=== PATIENT | female | born 1970 | race Caucasian/White ===

== ENCOUNTER 2016-07-15 17:22 | Emergency (ER) | payer OTHER ==
[~2016-07-15] VITALS: Ht 170.2 cm; Wt 121.0 kg
[~2016-07-15 17:22] MED LIST: CARD180C5 PO; LAMO200T PO; XANA1TAB PO; ZYPR10TA PO
[2016-07-15 17:26] VITALS: BP 148/102; PULSE 102; RESP 18; TEMP 99.2; O2SAT 97
[2016-07-15] MEDS ORDERED: OLAN5TAB PO (17:39)
[2016-07-15] MEDS ORDERED: XANA1TAB PO (17:39)
[2016-07-15] MEDS ORDERED: LAMI200T PO (17:39)
[2016-07-15] MEDS ORDERED: SODIUM CHLOR 0.9% 1000 ML INJ 1,000 ML IV SCH (17:52)
[2016-07-15] MEDS ORDERED: MORPHINE SULFATE 4 MG/ML INJ IV PUSH ONE (18:00)
[2016-07-15] MEDS ORDERED: SODIUM CHLORIDE 0.9% FLUSH 5 ML FLUSH IVF PRN (18:00)
[2016-07-15] MEDS ORDERED: ONDANSETRON HCL 4 MG/2 ML VIAL IVP ONE (18:00)
--- NOTE | 2016-07-15 18:15 | PD ---
HPI Chief Complaint: Abdominal Pain Time Seen by Provider: 17:44 Travel History International Travel<30 days: No Contact w/Intl Traveler<30days: No Traveled to known affect area: No History of Present Illness HPI Patient is a 46-year-old female who presents to emergency room with complaints of right lower quadrant abdominal pain. Patient reports that she has had constant pain to her right lower quadrant for the past week. Patient reports that pain feels like a cramping sensation to her right lower quadrant/pelvic area. Reports that pain has been persistent but worse today. Reports no fevers or chills. Denies constipation or diarrhea. Patient does admit to having a normal bowel movement this morning. Patient denies any vaginal bleeding or discharge. Patient reports that she has had history of a cholecystectomy, appendectomy as well as a partial hysterectomy secondary to fibroids. Reports that she does have a history of ovarian cysts, reports that her symptoms feel similar to when she has had ovarian cysts in the past. Denies dysuria/urgency/freq. No other complaints. PFSH Past Medical History Hx Anticoagulant Therapy: No Arthritis: Yes Blood Disorders: No Bipolar Disorder: Yes Anxiety: Yes Depression: Yes Heart Rhythm Problems: No Cancer: No Cardiac Catheterization: Yes (2008 IN [place]) Cardiovascular Problems: Yes (ARRYTHMIA) High Cholesterol: Yes Chemotherapy: No Chest Pain: Yes Congestive Heart Failure: No Cerebrovascular Accident: Yes (TIA 2013) Diabetes: No Diminished Hearing: No Endocrine: No Gastrointestinal Disorders: Yes (peptic ulcer disease , colon biopsy ) GERD: Yes Genitourinary: Yes Headaches: Yes Herniated Disk: Yes (L4, L5) Hypertension: Yes Immune Disorder: No Implanted Vascular Access Dvce: Yes Musculoskeletal: Yes (DEGENERATIVE DISC DISEASE, HERNIATED DISC L3,4 AND 5) Neurologic: Yes (TIA w/ TPA 2013) Psychiatric: Yes (bipolar ) Reproductive: No Respiratory: No Immunizations Current: Yes Migraines: Yes Radiation Therapy: No Seizures: No Thyroid Disease: No Ulcer: Yes PNEUMOCCOCAL Vaccine (Year): 2 ?: Not LMP: 2006 Menopausal: Yes : 2 Para: 2 Tubal Ligation: Yes Past Surgical History Appendectomy: Yes Body Medical Devices: post on tooth Cardiac Surgery: Yes (cardiac cath ) Cholecystectomy: Yes Coronary Artery Bypass Graft: No Gynecologic Surgery: Yes (partial hysterectomy, tubal ligation ) Hysterectomy: Yes (PARTIAL) Oral Surgery: Yes (tonsillectomy, oral surg w/ metal post implanted upper ) Tonsillectomy: Yes Other Surgery: Yes (INTESTINAL ADHESIONS) Family History Family Myocardial Infarction: Yes (FATHER) Social History Alcohol Use: Yes (SOCIALLY) Tobacco Use: No Substance Use: No Allergies-Medications (Allergen,Severity, Reaction): Coded Allergies: Pneumococcal Vaccine (Verified Allergy, Severe, ANAPHYLAXIS, 07/15/16) Aspirin (Verified Adverse Reaction, Intermediate, GI UPSET, 07/15/16) "IT GAVE ME A BLEEDING ULCER" Reported Meds & Prescriptions Reported Meds & Active Scripts Active Reported Olanzapine 5 Mg Tab 10 Mg PO HS Xanax Xr 24 HR (Alprazolam) 1 Mg Tab 1 Mg PO HS Take tablet intact, preferably in the morning. Lamictal (Lamotrigine) 200 Mg Tab 400 Mg PO HS Review of Systems Gastrointestinal: Positive: Abdominal Pain, No: Nausea, Vomiting, Diarrhea, Constipation Genitourinary: Positive: Pelvic Pain, No: Urgency, Frequency, Dysuria, Hematuria, Flank Pain, Discharge, Vaginal Bleeding Physical Exam Narrative GENERAL: No acute distress, nontoxic SKIN: Warm and dry. HEAD: Atraumatic. Normocephalic. EYES: Pupils equal and round. No injection or drainage. ENT: No nasal bleeding or discharge. Mucous membranes pink and moist. NECK: Trachea midline. No JVD. CARDIOVASCULAR: Regular rate and rhythm. No murmur appreciated. RESPIRATORY: No accessory muscle use. Clear to auscultation. Breath sounds equal bilaterally. GASTROINTESTINAL: Abdomen soft, patient with tenderness to right lower quadrant with no rebound or guarding : exam performed with RN at bedside, no discharge or bleeding, no cmt or adnexal tenderness MUSCULOSKELETAL: No obvious deformities. No clubbing. No cyanosis. No edema. NEUROLOGICAL: Awake and alert. Motor grossly within normal limits. Normal speech. PSYCHIATRIC: Appropriate mood and affect; insight and judgment normal. Data Data Last Documented VS Vital Signs Date Time Temp Pulse Resp B/P Pulse Ox O2 Delivery O2 Flow Rate FiO2 07/15/16 18:35 18 07/15/16 18:21 98 165/93 97 Room Air 07/15/16 17:26 99.2 Orders Complete Blood Count With Diff (07/15/16 17:52) Comprehensive Metabolic Panel (07/15/16 17:52) Prothrombin Time / Inr (Pt) (07/15/16 17:52) Act Partial Throm Time (Ptt) (07/15/16 17:52) Urinalysis - C+S If Indicated (07/15/16 17:52) Ct Abd/Pel W Iv Contrast(Rout) (07/15/16 17:52) Iv Access Insert/Monitor (07/15/16 17:52) Us Pelvis Comp Debate Director/Non-Preg (07/15/16 ) Morphine Inj (Morphine Inj) (07/15/16 18:00) Ondansetron Inj (Zofran Inj) (07/15/16 18:00) Sodium Chlor 0.9% 1000 Ml Inj (Ns 1000 M (07/15/16 17:52) Sodium Chloride 0.9% Flush (Ns Flush) (07/15/16 18:00) Ed Urine Pregnancytest Poc (07/15/16 17:52) Gc And Chlamydia Pcr (07/15/16 18:03) Wet Prep Profile (07/15/16 18:03) Labs Laboratory Tests Test 07/15/16 07/15/16 18:00 18:15 Urine Collection Type CLEAN CATCH Urine Color YELLOW Urine Turbidity CLEAR Urine pH 5.5 Urine Specific [place] 1.017 Urine Protein NEG mg/dL Urine Glucose (UA) NEG mg/dL Urine Ketones NEG mg/dL Urine Occult Blood NEG Urine Nitrite NEG Urine Bilirubin NEG Urine Leukocyte Esterase NEG Urine Squamous Epithelial 0-5 /hpf Cells Microscopic Urinalysis Comment CULT NOT INDICATED Clue Cells (Wet Prep) NONE SEEN Vaginal Trichomonas (Wet Prep) NONE SEEN Vaginal Yeast (Wet Prep) NONE SEEN White Blood Count 9.5 TH/MM3 Red Blood Count 4.82 MIL/MM3 Hemoglobin 13.8 GM/DL Hematocrit 40.3 % Mean Corpuscular Volume 83.5 FL Mean Corpuscular Hemoglobin 28.6 PG Mean Corpuscular Hemoglobin 34.2 % Concent Red Cell Distribution Width 12.7 % Platelet Count 237 TH/MM3 Mean Platelet Volume 8.7 FL Neutrophils (%) (Auto) 50.1 % Lymphocytes (%) (Auto) 42.4 % Monocytes (%) (Auto) 5.6 % Eosinophils (%) (Auto) 1.0 % Basophils (%) (Auto) 0.9 % Neutrophils # (Auto) 4.8 TH/MM3 Lymphocytes # (Auto) 4.0 TH/MM3 Monocytes # (Auto) 0.5 TH/MM3 Eosinophils # (Auto) 0.1 TH/MM3 Basophils # (Auto) 0.1 TH/MM3 CBC Comment DIFF FINAL Differential Comment Sodium Level 141 MEQ/L Potassium Level 3.6 MEQ/L Chloride Level 106 MEQ/L MDM Medical Decision Making Medical Screen Exam Complete: Yes Emergency Medical Condition: Yes Interpretation(s) Vital Signs Date Time Temp Pulse Resp B/P Pulse Ox O2 Delivery O2 Flow Rate FiO2 07/15/16 17:26 99.2 102 18 97 Differential Diagnosis cervicitis, ovarian cyst, ovarian torsion, cystis, muscle strain Narrative Course Patient is a 46-year-old female who presents to emergency room with complaints of RLQ abdominal pain for the past week. Patient with no fever/chills, no nausea or vomiting. Pt with hx of appendectomy as well as partial hysterectomy in the past. Patient with history of ovarian cysts in the past. Pelvic exam performed to evaluate for possible cervicitis. With no discharge or bleeding on evaluation. Patient with no CMT or adnexal tenderness. Patient with history of ovarian cysts in the past, ultrasound ordered for evaluation of possible ovarian cyst versus torsion. CBC, CMP, UA ordered for further evaluation symptoms. Patient signed out to Dr. Holt at change of shift. Charis Chavez DO Jul 15, 2016 18:15
[2016-07-15 18:21] VITALS: BP 165/93; PULSE 98; RESP 18; O2SAT 97
[2016-07-15 18:26] LABS: AUTOMATED NEUTROPHIL # 4.8 TH/MM3 (1.8-7.7); BASOPHIL # 0.1 TH/MM3 (0-0.2); BASOPHIL % 0.9 % (0.0-2.0); EOSINOPHIL # 0.1 TH/MM3 (0-0.4); HEMATOCRIT 40.3 % (35.0-46.0); HEMO FLAGS DIFF FINAL; LYMPH % 42.4 % (9.0-44.0); MEAN CELL VOLUME 83.5 FL (80.0-100.0); MEAN CORPUSCULAR HEMOGLOBIN 28.6 PG (27.0-34.0); MEAN CORPUSCULAR HGB CONC 34.2 % (32.0-36.0); MONO % 5.6 % (0.0-8.0); NEUT % 50.1 % (16.0-70.0); PLATELET COUNT 237 TH/MM3 (150-450); RED BLOOD COUNT 4.82 MIL/MM3 (4.00-5.30); RED CELL DISTRIBUTION WIDTH 12.7 % (11.6-17.2); WHITE BLOOD COUNT 9.5 TH/MM3 (4.0-11.0)
[2016-07-15 18:28] LABS: BLOOD, URINE NEG (NEG); GLUCOSE,URINE NEG (NEG); KETONE, URINE NEG (NEG); NITRITE,URINE NEG (NEG); PH, URINE 5.5 (5.0-8.5)
[2016-07-15 18:30] LABS: METHOD OF COLLECTION CLEAN CATCH; URINE COLOR YELLOW (YELLW/STRAW)
[2016-07-15 18:33] LABS: COMMENT (UR) CULT NOT INDICATED; CULTURE IF INDICATED CULT NOT INDICATED; SQUAMOUS EPITHELIAL CELL URINE 0-5 /hpf (0-5)
[2016-07-15 18:34] LABS: CHLORIDE 106 MEQ/L (98-107); POTASSIUM 3.6 MEQ/L (3.5-5.1); SODIUM (NA) 141 MEQ/L (136-145)
[2016-07-15 18:38] LABS: ANION GAP 10 MEQ/L (5-15); APTT (PATIENT) 36.6 SEC (24.3-30.1); BICARBONATE 25.5 MEQ/L (21.0-32.0); INTERNATIONAL NORMALIZED RATIO 0.9 RATIO; PROTHROMBIN TIME - PATIENT 10.3 SEC (9.8-11.6)
[2016-07-15 18:39] LABS: BLOOD UREA NITROGEN 10 MG/DL (7-18)
[2016-07-15 18:41] LABS: ALT (GPT) 20 U/L (10-53); AST (GOT) 14 U/L (15-37)
[2016-07-15 18:42] LABS: GLOMERULAR FILTRATION RATE 64 ML/MIN (>89)
[2016-07-15 18:43] LABS: TOTAL BILIRUBIN ADULT 0.7 MG/DL (0.2-1.0)
[2016-07-15 18:44] LABS: ALKALINE PHOSPHATASE 120 U/L (45-117)
--- NOTE | 2016-07-15 19:11 | PD ---
Physical Exam Date Seen by Provider: Jul 15, 2016 Time Seen by Provider: 19:10 Narrative Accepted in transfer of care from Dr. Chavez GENERAL: Well-developed well-nourished female in no acute distress no apparent distress resting comfortably after sound just performed GASTROINTESTINAL: Abdomen soft, minimal tenderness to the right lower quadrant without guarding or rebound, nondistended. . Data Data Last Documented VS Vital Signs Date Time Temp Pulse Resp B/P Pulse Ox O2 Delivery O2 Flow Rate FiO2 07/15/16 19:40 98 18 165/93 98 Room Air 07/15/16 17:26 99.2 Orders Complete Blood Count With Diff (07/15/16 17:52) Comprehensive Metabolic Panel (07/15/16 17:52) Prothrombin Time / Inr (Pt) (07/15/16 17:52) Act Partial Throm Time (Ptt) (07/15/16 17:52) Urinalysis - C+S If Indicated (07/15/16 17:52) Ct Abd/Pel W Iv Contrast(Rout) (07/15/16 17:52) Iv Access Insert/Monitor (07/15/16 17:52) Morphine Inj (Morphine Inj) (07/15/16 18:00) Ondansetron Inj (Zofran Inj) (07/15/16 18:00) Sodium Chlor 0.9% 1000 Ml Inj (Ns 1000 M (07/15/16 17:52) Sodium Chloride 0.9% Flush (Ns Flush) (07/15/16 18:00) Ed Urine Pregnancytest Poc (07/15/16 17:52) Gc And Chlamydia Pcr (07/15/16 18:03) Wet Prep Profile (07/15/16 18:03) Us Pelvis Comp W Transvaginal (07/15/16 ) Iohexol 350 Inj (Omnipaque 350 Inj) (07/15/16 19:31) Labs Laboratory Tests Test 07/15/16 07/15/16 18:00 18:15 Urine Collection Type CLEAN CATCH Urine Color YELLOW Urine Turbidity CLEAR Urine pH 5.5 Urine Specific [place] 1.017 Urine Protein NEG mg/dL Urine Glucose (UA) NEG mg/dL Urine Ketones NEG mg/dL Urine Occult Blood NEG Urine Nitrite NEG Urine Bilirubin NEG Urine Leukocyte Esterase NEG Urine Squamous Epithelial 0-5 /hpf Cells Microscopic Urinalysis Comment CULT NOT INDICATED Clue Cells (Wet Prep) NONE SEEN Vaginal Trichomonas (Wet Prep) NONE SEEN Vaginal Yeast (Wet Prep) NONE SEEN White Blood Count 9.5 TH/MM3 Red Blood Count 4.82 MIL/MM3 Hemoglobin 13.8 GM/DL Hematocrit 40.3 % Mean Corpuscular Volume 83.5 FL Mean Corpuscular Hemoglobin 28.6 PG Mean Corpuscular Hemoglobin 34.2 % Concent Red Cell Distribution Width 12.7 % Platelet Count 237 TH/MM3 Mean Platelet Volume 8.7 FL Neutrophils (%) (Auto) 50.1 % Lymphocytes (%) (Auto) 42.4 % Monocytes (%) (Auto) 5.6 % Eosinophils (%) (Auto) 1.0 % Basophils (%) (Auto) 0.9 % Neutrophils # (Auto) 4.8 TH/MM3 Lymphocytes # (Auto) 4.0 TH/MM3 Monocytes # (Auto) 0.5 TH/MM3 Eosinophils # (Auto) 0.1 TH/MM3 Basophils # (Auto) 0.1 TH/MM3 CBC Comment DIFF FINAL Differential Comment Prothrombin Time 10.3 SEC Prothromb Time International 0.9 RATIO Ratio Activated Partial 36.6 SEC Thromboplast Time Sodium Level 141 MEQ/L Potassium Level 3.6 MEQ/L Chloride Level 106 MEQ/L Carbon Dioxide Level 25.5 MEQ/L Anion Gap 10 MEQ/L Blood Urea Nitrogen 10 MG/DL Creatinine 0.95 MG/DL Estimat Glomerular Filtration 64 ML/MIN Rate Random Glucose 92 MG/DL Calcium Level 8.7 MG/DL Total Bilirubin 0.7 MG/DL Aspartate Amino Transf 14 U/L (AST/SGOT) Alanine Aminotransferase 20 U/L (ALT/SGPT) Alkaline Phosphatase 120 U/L Total Protein 7.4 GM/DL Albumin 3.4 GM/DL [facility] Medical Record Reviewed: Yes Supervised Visit with APOLINAR: No Interpretation(s) Last Impressions Abdomen/Pelvis CT 07/15/16 1752 Signed Impressions: Service Date/Time: Friday, July 15, 2016 19:22 - CONCLUSION: Negative CT abdomen/pelvis with contrast. Morteza Zapata MD Pelvis Ultrasound 07/15/16 0000 Signed Impressions: Service Date/Time: Friday, July 15, 2016 18:52 - CONCLUSION: Trace amount of fluid in the cul-de-sac. No gross abnormality in either ovary. Morteza Zapata MD Differential Diagnosis Accepted in transfer of care from Dr. Chavez; please refer to her dictation Narrative Course Accepted in transfer of care from Dr. Chavez for follow-up of pending labs and imaging studies and patient disposition Lab values found to be in normal range;@7:15 PM ultrasound has just been completed CT abdomen and pelvis pending results of ultrasound pending Patient resting comfortably aware of imaging results and lab results reviewed; patient stable for outpatient management and close follow-up with her primary care physician and her rigging man. Patient reports that she is symptomatically improved and is aware that she can continue to use acetaminophen for minor discomfort and encouraged to follow clear liquid diet for 12-24 hours and advance as tolerated. Diagnosis Primary Impression: Abdominal pain Qualified Code: R10.31 - Right lower quadrant abdominal pain Referrals: Primary Care Physician call for appointment Patient Instructions: Narcotic given in the ED, General Instructions Additional Instruction: Follow clear liquid diet for next 12-24 hours advance as tolerated to bland/ Robina diet then regular diet Follow-up with primary care physician call office in a.m. to schedule follow up appointment May use acetaminophen/Tylenol as often as every 4-6 hours as needed for minor pain Return to the emergency department for any concerns or change in condition Med/Other Pt SpecificInfo: No Change to Meds Disposition: 01 DISCHARGE HOME Condition: Stable (ERASED) Marlys Holt MD Jul 15, 2016 19:11
[2016-07-15] MEDS ORDERED: IOHEXOL 350 MG/ML 10 ML VIAL (for RAD DIAG) IV ONE (19:31)
--- NOTE | 2016-07-15 19:36 | RADHPO ---
EXAM DATE/TIME: 07/15/2016 18:52 [facility] COMPARISON: No previous studies available for comparison. INDICATIONS : Pelvic pain. MEDICAL HISTORY : Hypercholesterolemia. Hypertension. Gastroesophageal reflux disease. TIA with tissue plasminogen acti vator. Head trauma. Migraines. Arrythmia. Peptic ulcer disease. Degenerative disc disease. Herniated discs. UTI. Intestinal adhesions. Bipolar. PTSD. Depression. Anxiety. SURGICAL HISTORY : Tonsillectomy. Appendectomy. Cholecystectomy. Partial hysterectomy. Tubal ligation. Abdominal adhesio n lysis. Colon biopsy. Cardiac cath. Oral surgery with upper metal plate implanted. ENCOUNTER: Initial ACUITY: 1 week PAIN SCORE: 3/10 LOCATION: Bilateral pelvis MEASUREMENTS: RIGHT OVARY: 1.7 x 1.5 x 1.0 cm LEFT OVARY: 1.9 x 2.1 x 1.3 cm FINDINGS: UTERUS: Surgically absent. RIGHT OVARY: Ovary contains no mass or significant cystic lesion. LEFT OVARY: Ovary contains no mass or significant cystic lesion. MISCELLANEOUS: Trace amount of fluid in the cul-de-sac. CONCLUSION: Trace amount of fluid in the cul-de-sac. No gross abnormality in either ovary. Morteza Zapata MD on July 15, 2016 at 19:33 Board Certified Radiologist. This report was verified electronically.
--- NOTE | 2016-07-15 19:38 | RADHPO ---
EXAM DATE/TIME: 07/15/2016 19:22 [facility] COMPARISON: CT ABDOMEN & PELVIS W CONTRAST, September 11, 2014, 21:23. INDICATIONS : Right lower quadrant pain for one week. IV CONTRAST: 90 cc Omnipaque 350 (iohexol) IV ORAL CONTRAST: No oral contrast ingested. RADIATION DOSE: 22.19 CTDIvol (mGy) MEDICAL HISTORY : Hypertension. SURGICAL HISTORY : Hysterectomy. Appendectomy.Cholecystectomy. ENCOUNTER: Initial ACUITY: 1 week PAIN SCALE: 6/10 LOCATION: Right lower quadrant TECHNIQUE: Volumetric scanning of the abdomen and pelvis was performed. Using automated exposure control and ad justment of the mA and/or kV according to patient size, radiation dose was kept as low as reasonably achievable to obtain optimal diagnostic quality images. FINDINGS: LOWER LUNGS: The visualized lower lungs are clear. LIVER: Homogeneous density without lesion. There is no dilation of the biliary tree. Hemoclips in the port a from prior cholecystectomy.. SPLEEN: Normal size without lesion. PANCREAS: Within normal limits. KIDNEYS: Normal in size and shape. There is no mass, stone or hydronephrosis. ADRENAL GLANDS: Within normal limits. VASCULAR: There is no aortic aneurysm. BOWEL/MESENTERY: The stomach, small bowel, and colon demonstrate no acute abnormality. There is no free intraperitone al air or fluid. ABDOMINAL WALL: Within normal limits. RETROPERITONEUM: There is no lymphadenopathy. BLADDER: No wall thickening or mass. REPRODUCTIVE: Within normal limits. INGUINAL: There is no lymphadenopathy or hernia. MUSCULOSKELETAL: Within normal limits for patient age. CONCLUSION: Negative CT abdomen/pelvis with contrast. Morteza Zapata MD on July 15, 2016 at 19:35 Board Certified Radiologist. This report was verified electronically.
[2016-07-15 19:40] VITALS: BP 165/93; PULSE 98; RESP 18; O2SAT 98
[2016-07-15 23:50] LABS: CHLAMYDIA PCR NOT DETECTED (NOT DETECT); NEISSERIA PCR NOT DETECTED (NOT DETECT)
== END 2016-07-15 20:35 | disposition home or self-care (01) ==
LOC: PHED 17:22
DX: R10.31 Right lower quadrant pain (principal); I10 Essential (primary) hypertension
CPT/HCPCS: 74177; 76830; 76856; 80053; 81001; 84703; 85025; 85610; 85730; 87210; 87491; 87591; 96361; 96374; 96375; 99284; J2270; J2405; J7030; Q9967

== ENCOUNTER 2016-09-13 19:28 | Observation (INO) | payer OTHER ==
[2016-09-13] VITALS (10 sets, daily range): BP systolic 131–173; BP diastolic 76–94; PULSE 94–114; RESP 18–20; TEMP 97.7; O2SAT 95–97
[~2016-09-13] VITALS: Ht 170.2 cm; Wt 122.7 kg
[~2016-09-13 19:28] MED LIST changes: -CARD180C5 PO; +LAMI200T PO; -LAMO200T PO; +OLAN5TAB PO; -ZYPR10TA PO
[2016-09-13] MEDS ORDERED: SODIUM CHLORIDE 0.9% FLUSH 10 ML FLUSH IVF PRN ×2 (19:45→21:15)
[2016-09-13] MEDS: NITROGLYCERIN 0.4 MG SL 25 TABS/BTL SL SCH ×3 (19:55→20:12)
--- NOTE | 2016-09-13 19:57 | PD ---
HPI Chief Complaint: Chest Pain Time Seen by Provider: 19:58 Travel History International Travel<30 days: No Contact w/Intl Traveler<30days: No Traveled to known affect area: No History of Present Illness HPI 46-year-old female presents to the emergency department by private transportation the care of of family for evaluation of left-sided chest pain and epigastric pain 2 days. Patient describes pain as dull heavy and sharp. Patient states she has associated nausea and shortness of breath. No pleuritic pain reported. No report of referred neck jaw back shoulder arm pain. No sweats or near syncope or syncope reported. Patient reports known history of CAD due to cardiac catheterization in [place] in 2008 "small blockage", but denies hypertension, dyslipidemia, diabetes, tobacco use, or family history premature onset heart disease, (father age 70 of "cardiac arrest"). Patient has history of TIA/CVA in 2013 and received TPA but reportedly had negative extensive imaging workup and cardiology workup and neurology workup for CVA. Patient also has history of migraine with variant features as well as bipolar disorder. Patient is status post cholecystectomy, appendectomy, and hysterectomy. Patient has had stress tests in the past that have been "negative ". Patient states she has not seen her primary care provider in the past [address] King and saw her psychiatrist Dr. Hamlin 2-3 weeks ago and is not followed by a account executive software sales; Dr Benito sort worker -endoscopy 5 months ago -gastritis "no aspirin" use. No recent change of medications. Patient did not contact her primary care provider regarding her 7/10 chest pain. Patient is unable to identify specific exacerbating or alleviating factors. Patient's had no recent febrile illness or respiratory illness, no productive cough or wheezing. Patient's had nausea without vomiting. Patient states after eating breakfast this morning she had one loose stool but does not note any melena hematochezia or recurrent loose stools. No recent antibiotic use. Patient does not report any lower extremity pain or swelling. No recent long distance travel protracted bedrest or surgical procedure. Patient denies any personal history of family history of clotting disorder. PFSH Past Medical History Narrative Medical CAD, TIA, medical record hypertension, bipolar disorder, medical record dyslipidemia, migraine with variant, PUD; cardiac catheterization, cholecystectomy, appendectomy, tubal ligation, hysterectomy; no tobacco use no substance use or alcohol use; family history of hernia disease and father at age 70 no premature onset history of heart disease; nursing notes reviewed Hx Anticoagulant Therapy: No Arthritis: Yes Blood Disorders: No Bipolar Disorder: Yes Anxiety: Yes Depression: Yes Heart Rhythm Problems: No Cancer: No Cardiac Catheterization: Yes (2008 IN [place]) Cardiovascular Problems: Yes (ARRYTHMIA) High Cholesterol: Yes Chemotherapy: No Chest Pain: Yes Congestive Heart Failure: No Cerebrovascular Accident: Yes (TIA 2013) Diabetes: No Diminished Hearing: No Endocrine: No Gastrointestinal Disorders: Yes (peptic ulcer disease , colon biopsy ) GERD: Yes Genitourinary: Yes Headaches: Yes Herniated Disk: Yes (L4, L5) Hypertension: Yes Immune Disorder: No Implanted Vascular Access Dvce: Yes Musculoskeletal: Yes (DEGENERATIVE DISC DISEASE, HERNIATED DISC L3,4 AND 5) Neurologic: Yes (TIA w/ TPA 2013) Psychiatric: Yes (bipolar ) Reproductive: No Respiratory: No Immunizations Current: Yes Migraines: Yes Radiation Therapy: No Seizures: No Thyroid Disease: No Ulcer: Yes PNEUMOCCOCAL Vaccine (Year): 2 ?: Unknown Menopausal: Yes : 2 Para: 2 Tubal Ligation: Yes Past Surgical History Appendectomy: Yes Body Medical Devices: post on tooth Cardiac Surgery: Yes (cardiac cath ) Cholecystectomy: Yes Coronary Artery Bypass Graft: No Gynecologic Surgery: Yes (partial hysterectomy, tubal ligation ) Hysterectomy: Yes Oral Surgery: Yes (tonsillectomy, oral surg w/ metal post implanted upper ) Tonsillectomy: Yes Other Surgery: Yes (INTESTINAL ADHESIONS) Social History Alcohol Use: Yes (SOCIALLY) Tobacco Use: No Substance Use: No Allergies-Medications (Allergen,Severity, Reaction): Coded Allergies: Pneumococcal Vaccine (Verified Allergy, Severe, ANAPHYLAXIS, 07/15/16) Aspirin (Verified Adverse Reaction, Intermediate, GI UPSET, 07/15/16) "IT GAVE ME A BLEEDING ULCER" Reported Meds & Prescriptions Reported Meds & Active Scripts Active Reported Olanzapine 5 Mg Tab 10 Mg PO HS Xanax Xr 24 HR (Alprazolam) 1 Mg Tab 1 Mg PO HS Take tablet intact, preferably in the morning. Lamictal (Lamotrigine) 200 Mg Tab 400 Mg PO HS Review of Systems Except as stated in HPI: all other systems reviewed are Neg General / Constitutional: No: Fever HENT: No: Congestion Cardiovascular: Positive: Chest Pain or Discomfort Respiratory: Positive: Shortness of Breath, No: Cough Gastrointestinal: Positive: Nausea, Diarrhea (x1), No: Vomiting, Abdominal Pain Genitourinary: No: Frequency, Dysuria, Flank Pain Musculoskeletal: No: Myalgias, Arthralgias, Cramping, Edema Skin: No Rash Neurologic: No: Weakness, Dizziness, Syncope, Focal Abnormalities, Coordination Problem, Headache, Change in Mentation, Slurred Speech Psychiatric: No: Anxiety Endocrine: No: Heat Intolerance Hematologic/Lymphatic: No: Easy Bruising Physical Exam Narrative GENERAL: Well developed well-nourished female in no acute distress no respiratory distress; GCS 15. SKIN: Warm and dry. HEAD: Atraumatic. Normocephalic. EYES: Pupils equal and round. No scleral icterus. No injection or drainage. ENT: No nasal bleeding or discharge. Mucous membranes pink and moist. NECK: Trachea midline. No JVD. CARDIOVASCULAR: Regular rate and rhythm. RESPIRATORY: No accessory muscle use. Clear to auscultation. Breath sounds equal bilaterally. GASTROINTESTINAL: Abdomen soft, non-tender, nondistended. Hepatic and splenic margins not palpable. MUSCULOSKELETAL: Extremities without clubbing, cyanosis, or edema. No obvious deformities. Bilateral radial and dorsalis pedis pulses 2+ to palpation. NEUROLOGICAL: Awake and alert. No obvious cranial nerve deficits. Motor grossly within normal limits. Five out of 5 muscle strength in the arms and legs. Normal speech. PSYCHIATRIC: Appropriate mood and affect; insight and judgment normal. Data Data Last Documented VS Vital Signs Date Time Temp Pulse Resp B/P Pulse Ox O2 Delivery O2 Flow Rate FiO2 09/13/16 21:00 105 20 155/76 96 Room Air 148/94 09/13/16 19:35 97.7 Orders Electrocardiogram (09/13/16 19:43) Basic Metabolic Panel (Bmp) (09/13/16 19:43) Ckmb (Isoenzyme) Profile (09/13/16 19:43) Complete Blood Count With Diff (09/13/16 19:43) Magnesium (Mg) (09/13/16 19:43) Prothrombin Time / Inr (Pt) (09/13/16 19:43) Act Partial Throm Time (Ptt) (09/13/16 19:43) Troponin I (09/13/16 19:43) Lipase (09/13/16 19:43) Chest, Single Ap (09/13/16 19:43) Ecg Monitoring (09/13/16 19:43) Bilateral Bp Monitoring (09/13/16 19:43) Iv Access Insert/Monitor (09/13/16 19:43) Oximetry (09/13/16 19:43) Oxygen Administration (09/13/16 19:43) Sodium Chloride 0.9% Flush (Ns Flush) (09/13/16 19:45) Nitroglycerin Sl (Nitrostat Sl) (09/13/16 19:45) Sodium Chlor 0.9% 1000 Ml Inj (Ns 1000 M (09/13/16 19:45) CKMB (09/13/16 19:45) CKMB% (09/13/16 19:45) Pantoprazole Inj (Protonix Inj) (09/13/16 20:30) Acetaminophen (Tylenol) (09/13/16 20:30) Ondansetron Inj (Zofran Inj) (09/13/16 20:45) Morphine Inj (Morphine Inj) (09/13/16 20:45) Nitroglycerin 2% Oint (Nitroglycerin 2% (09/13/16 21:00) Labs Laboratory Tests Test 09/13/16 19:45 White Blood Count 9.9 TH/MM3 Red Blood Count 5.09 MIL/MM3 Hemoglobin 14.5 GM/DL Hematocrit 43.0 % Mean Corpuscular Volume 84.5 FL Mean Corpuscular Hemoglobin 28.5 PG Mean Corpuscular Hemoglobin 33.7 % Concent Red Cell Distribution Width 12.4 % Platelet Count 251 TH/MM3 Mean Platelet Volume 9.2 FL Neutrophils (%) (Auto) 53.0 % Lymphocytes (%) (Auto) 39.2 % Monocytes (%) (Auto) 4.9 % Eosinophils (%) (Auto) 1.0 % Basophils (%) (Auto) 1.9 % Neutrophils # (Auto) 5.2 TH/MM3 Lymphocytes # (Auto) 3.9 TH/MM3 Monocytes # (Auto) 0.5 TH/MM3 Eosinophils # (Auto) 0.1 TH/MM3 Basophils # (Auto) 0.2 TH/MM3 CBC Comment DIFF FINAL Differential Comment Prothrombin Time 10.3 SEC Prothromb Time International 0.9 RATIO Ratio Activated Partial 35.4 SEC Thromboplast Time Sodium Level 139 MEQ/L Potassium Level 5.0 MEQ/L Chloride Level 105 MEQ/L Carbon Dioxide Level 27.1 MEQ/L Anion Gap 7 MEQ/L Blood Urea Nitrogen 14 MG/DL Creatinine 1.00 MG/DL Estimat Glomerular Filtration 60 ML/MIN Rate Random Glucose 127 MG/DL Calcium Level 8.6 MG/DL Magnesium Level 2.4 MG/DL Total Creatine Kinase 183 U/L Creatine Kinase MB 0.6 NG/ML Troponin I LESS THAN 0.02 NG/ML Lipase 129 U/L Exceptions Acute Myocardial Infarction ASA Not Given on Arrival: Hx. Allergy/Adv. Reaction, Patient Refuses Aspirin Comment: patient with reported 'active gastritis'--GI told "no aspirin " [facility] Medical Decision Making Medical Screen Exam Complete: Yes Emergency Medical Condition: Yes Medical Record Reviewed: Yes Interpretation(s) EKG: Sinus tachycardia rate [address] elevation or injury pattern change noted are sore prime with QRS of 88 ms nonspecific anterior T wave changes comparison EKGs unchanged most recent 01/15/16 essentially unchanged Differential Diagnosis Chest pain, ACS, PR, atypical chest pain, musculoskeletal pain, PE, pneumonia, gastritis, choledocholithiasis, pancreatitis Narrative Course Patient placed on school lunch monitor IV access obtained specimens collected and sent for resulting patient is allergic to aspirin therefore will defer aspirin at this time and administer sublingual nitroglycerin with maintenance IV fluids normal saline 100 cc per hour. after first sl ntg 0.4 mg pain 5/10 but "made her teeth throb" after second sl ntg 0.4 mg reportedly her pain increased to 6/10 and increased her epigastric pain; protonix 40 mg iv and acetaminophen 650 mg by mouth administered; patient informed of lab values are found to be in normal range EKG reveals no acute injury pattern @ 8:40 PM Patient identifies her discomfort as 6/10 dull and heavy non- radiating nitroglycerin paste applied and zofran 4 mg iv and morphine 2 mg iv administered; plan for [facility] obs admission Physician Communication Physician Communication discussed with Dr Loco for OBS to [facility] per protocol Diagnosis Primary Impression: Chest pain Qualified Code: R07.2 - Precordial pain Marlys Holt MD Sep 13, 2016 19:57
[2016-09-13 20:07] LABS: CHLORIDE 105 MEQ/L (98-107); SODIUM (NA) 139 MEQ/L (136-145)
[2016-09-13 20:08] LABS: AUTOMATED NEUTROPHIL # 5.2 TH/MM3 (1.8-7.7); BASOPHIL # 0.2 TH/MM3 (0-0.2); BASOPHIL % 1.9 % (0.0-2.0); EOSINOPHIL # 0.1 TH/MM3 (0-0.4); HEMO FLAGS DIFF FINAL; LYMPH % 39.2 % (9.0-44.0); LYMPHOCYTE # 3.9 TH/MM3 (1.0-4.8); MEAN CELL VOLUME 84.5 FL (80.0-100.0); MEAN CORPUSCULAR HEMOGLOBIN 28.5 PG (27.0-34.0); MEAN CORPUSCULAR HGB CONC 33.7 % (32.0-36.0); MONO % 4.9 % (0.0-8.0); PLATELET COUNT 251 TH/MM3 (150-450); RED BLOOD COUNT 5.09 MIL/MM3 (4.00-5.30); RED CELL DISTRIBUTION WIDTH 12.4 % (11.6-17.2); WHITE BLOOD COUNT 9.9 TH/MM3 (4.0-11.0)
[2016-09-13] MEDS: SODIUM CHLOR 0.9% 1000 ML INJ 1,000 ML IV SCH (20:08)
[2016-09-13 20:10] LABS: ANION GAP 7 MEQ/L (5-15); BICARBONATE 27.1 MEQ/L (21.0-32.0); MAGNESIUM 2.4 MG/DL (1.5-2.5)
[2016-09-13 20:11] LABS: BLOOD UREA NITROGEN 14 MG/DL (7-18)
[2016-09-13 20:13] LABS: GLOMERULAR FILTRATION RATE 60 ML/MIN (>89)
--- NOTE | 2016-09-13 20:13 | RADHPO ---
EXAM DATE/TIME: 09/13/2016 19:58 [facility] COMPARISON: CHEST SINGLE AP, January 15, 2016, 20:22. INDICATIONS : Chest pain MEDICAL HISTORY : None. SURGICAL HISTORY : None. ENCOUNTER: Initial ACUITY: 1 day PAIN SCORE: 3/10 LOCATION: Bilateral chest FINDINGS: A single view of the chest demonstrates the lungs to be symmetrically aerated without evidence of mas s, infiltrate or effusion. The cardiomediastinal contours are unremarkable. Osseous structures are intact. CONCLUSION: No acute disease. Tomas Garcia MD on September 13, 2016 at 20:12 Board Certified Radiologist. This report was verified electronically.
[2016-09-13 20:17] LABS: CREATINE KINASE 183 U/L (26-192)
[2016-09-13 20:21] LABS: APTT (PATIENT) 35.4 SEC (24.3-30.1); INTERNATIONAL NORMALIZED RATIO 0.9 RATIO; PROTHROMBIN TIME - PATIENT 10.3 SEC (9.8-11.6)
[2016-09-13 20:29] LABS: CKMB 0.6 NG/ML (0.5-3.6)
[2016-09-13] MEDS ORDERED: PANTOPRAZOLE SODIUM 40 MG VIAL IV PUSH ONE (20:30)
[2016-09-13] MEDS ORDERED: ACETAMINOPHEN 325 MG TAB PO ONE (20:30)
[2016-09-13] MEDS ORDERED: MORPHINE SULFATE 4 MG/ML INJ IV PUSH ONE (20:45)
[2016-09-13] MEDS ORDERED: ONDANSETRON HCL 4 MG/2 ML VIAL IV PUSH ONE (20:45)
[2016-09-13] MEDS ORDERED: NITROGLYCERIN 2% OINT 1 GM PACKET TOPICAL ONE (21:00)
[2016-09-13] MEDS ORDERED: SODIUM CHLORIDE 0.9% FLUSH 10 ML FLUSH IV FLUSH PRN (21:30)
[2016-09-13 22:56] LABS: CREATINE KINASE 89 U/L (26-192)
[2016-09-13] MEDS ORDERED: OLANZapine 10 MG TAB PO SCH (23:10)
[2016-09-13] MEDS ORDERED: lamoTRIgine 100 MG TAB PO SCH (23:10)
[2016-09-13] MEDS ORDERED: ALPRAZOLAM 1 MG PO SCH (23:30)
[2016-09-13] MEDS ORDERED: OLANZapine 5 MG TAB PO SCH (23:45)
[2016-09-14] VITALS (9 sets, daily range): BP systolic 112–158; BP diastolic 65–112; PULSE 70–100; RESP 18–20; TEMP 96.1–98.5; O2SAT 79–99
[2016-09-14 02:13] LABS: CREATINE KINASE 81 U/L (26-192)
[2016-09-14] MEDS ORDERED: NITROGLYCERIN 0.4 MG SL 25 TABS/BTL SL PRN (02:15)
[2016-09-14] MEDS: ACETAMINOPHEN 325 MG TAB PO PRN ×2 (02:15→06:18)
[2016-09-14] MEDS: SODIUM CHLOR 0.9% 1000 ML INJ 1,000 ML IV SCH (05:45)
[2016-09-14] MEDS ORDERED: SODIUM CHLORIDE 0.9% FLUSH 10 ML FLUSH IV FLUSH SCH ×2 (09:00)
--- NOTE | 2016-09-14 11:03 | HHI.HP ---
[facility] Non-Staff Admission Diagnosis chest pain Diagnoses: (1) Chest pain Diagnosis: Principal Chief Complaint: Chest pain Travel History International Travel<30 Days: No Contact w/Intl Traveler <30 Da: No Traveled to Known Affected Are: No History of Present Illness 46-year-old female with known history of hypertension, hyperlipidemia , TIA, bipolar disorder who presented to hospital because of chest pain. Patient states that she has been having left sternal border chest pain for 3 days. She does have a primary medical doctor and nuclear technician which she follows on a regular basis. Last time she saw Dr. Black was 6 months ago. Patient did not call her primary medical doctor or nuclear technician prior to coming to the hospital. She states that her chest pain was a 7/10 on a pain scale located over the left sternal border without any radiation to the neck, back, shoulder, arm. Patient denies any nausea, vomiting, diaphoresis, shortness breath, dyspnea, lightheadedness, dizziness. Patient states that the pain was relieved down to a 3/10 on a pain scale with the use of nitroglycerin. Patient does have chronic abdominal issues which she has had endoscopy done which did show gastritis. Contact her GI physician in reference to her recurrent pain. Patient was evaluated in emergency department recommended up elevation of the chest pain center for further evaluation and management. Review of Systems Constitutional: DENIES: Diaphoretic episodes, Fatigue, Fever, Weight gain, Weight loss, Chills, Dizziness, Change in appetite, Night Sweats Eyes: DENIES: Blurred vision, Diplopia, Eye inflammation, Eye pain, Vision loss , Double Vision Ears, nose, mouth, throat: DENIES: Vertigo, Nasal discharge, Throat pain, Ear Pain, Running Nose, Sinus Pain Respiratory: DENIES: Apneas, Cough, Snoring, Wheezing, Hemoptysis, Sputum production, Shortness of breath Cardiovascular: COMPLAINS OF: Chest pain, DENIES: Palpitations, Syncope, Dyspnea on Exertion, Lower Extremity Edema, Orthopnea Gastrointestinal: DENIES: Abdominal pain, Black stools, Bloody stools, Constipation, Diarrhea, Nausea, Vomiting, Difficulty Swallowing, Anorexia Neurologic: DENIES: Abnormal gait, Headache, Localized weakness, Paresthesias, Seizures, Speech Problems, Tremor, Poor Balance Psychiatric: DENIES: Anxiety, Confusion, Mood changes, Depression Past Family Social History Past Medical History Bipolar disorder Coronary artery disease Migraine cephalgia Gastric ulcer History of suicidal attempt Arthritis TIA Past Surgical History Tonsillectomy Cardiac catheterization Appendectomy Cholecystectomy Tubal ligation Partial hysterectomy Cyst removed from wrist and right arm Left shoulder surgery Reported Medications Reported Meds & Active Scripts Active Reported Olanzapine 5 Mg Tab 10 Mg PO HS Xanax Xr 24 HR (Alprazolam) 1 Mg Tab 1 Mg PO HS Take tablet intact, preferably in the morning. Lamictal (Lamotrigine) 200 Mg Tab 400 Mg PO HS Allergies: Coded Allergies: Pneumococcal Vaccine (Verified Allergy, Severe, ANAPHYLAXIS, 09/13/16) Aspirin (Verified Adverse Reaction, Intermediate, GI UPSET, 09/13/16) "IT GAVE ME A BLEEDING ULCER" Family History Significant for father with diabetes, heart disease, myocardial infarction. Mother with hypertension Social History Patient denies any tobacco, illicit drugs. She does drink alcohol occasionally Physical Exam Vital Signs Vital Signs Date Time Temp Pulse Resp B/P Pulse Ox O2 Delivery O2 Flow Rate FiO2 09/14/16 08:50 96.1 70 20 133/86 94 09/14/16 07:05 89 18 158/89 99 Room Air 09/14/16 07:02 86 09/14/16 06:20 Room Air 09/14/16 06:20 76 18 130/76 96 Room Air 09/14/16 05:45 86 18 112/65 09/14/16 05:39 77 18 138/71 Room Air 09/14/16 04:30 97.9 75 18 121/78 95 Room Air 09/14/16 04:04 18 09/14/16 04:00 18 96 Room Air 09/14/16 00:30 98.5 100 18 141/80 97 Room Air 09/14/16 00:00 18 95 Room Air 09/13/16 23:30 94 18 145/85 95 Room Air 09/13/16 22:30 98 18 158/91 95 Room Air 09/13/16 21:46 18 09/13/16 21:46 18 09/13/16 21:35 96 09/13/16 21:30 98 18 131/77 95 Room Air 09/13/16 21:00 105 20 155/76 96 Room Air 148/94 09/13/16 20:20 114 20 173/92 95 Room Air 09/13/16 20:05 111 18 155/85 95 Room Air 09/13/16 20:00 20 97 Room Air 09/13/16 19:59 102 18 149/93 95 Room Air 09/13/16 19:45 97 Room Air 09/13/16 19:45 97 Room Air 09/13/16 19:35 97.7 111 20 165/86 97 156/82 Physical Exam GENERAL: Well-developed, well-nourished, in no acute distress. alert and orientated HEENT: Head is normocephalic without any lesions or masses noted. Facial features are symmetric. Eyes: Pupils equal round reactive to light. Extraocular muscles are intact. Conjunctivae were clear. Oropharyngeal: Pharynx without any erythema edema. Tongue is midline without deviation. Buccal mucosa is moist without any masses or lesions NECK: Supple without any masses. Trachea midline no deviation. No JVD, no bruits are appreciated CARDIAC: Regular rhythm, regular rate. S1/S2 are heard. No murmurs gallops or rubs. LUNGS: Clear to auscultation bilaterally. No wheeze, rhonchi or rales. No use of accessory muscles on inspiration or expiration. ABDOMEN: Soft, nontender. Nondistended. Bowel sounds heard in all 4 quadrants. No organomegaly or masses. Negative rebound, negative guarding EXTREMITIES: No edema, pulses are equal bilaterally. No cyanosis or clubbing NEUROLOGY: Mood and affect appear appropriate. Cranial nerves II through XII grossly intact. Muscle strength 5/5 in upper and lower extremities bilaterally. Deep tendon reflexes are 2+ in upper and lower extremities bilaterally. Laboratory Laboratory Tests Test 09/13/16 09/13/16 09/14/16 19:45 22:27 01:42 White Blood Count 9.9 Red Blood Count 5.09 Hemoglobin 14.5 Hematocrit 43.0 Mean Corpuscular Volume 84.5 Mean Corpuscular Hemoglobin 28.5 Mean Corpuscular Hemoglobin 33.7 Concent Red Cell Distribution Width 12.4 Platelet Count 251 Mean Platelet Volume 9.2 Neutrophils (%) (Auto) 53.0 Lymphocytes (%) (Auto) 39.2 Monocytes (%) (Auto) 4.9 Eosinophils (%) (Auto) 1.0 Basophils (%) (Auto) 1.9 Neutrophils # (Auto) 5.2 Lymphocytes # (Auto) 3.9 Monocytes # (Auto) 0.5 Eosinophils # (Auto) 0.1 Basophils # (Auto) 0.2 CBC Comment DIFF FINAL Differential Comment Prothrombin Time 10.3 Prothromb Time International 0.9 Ratio Activated Partial 35.4 Thromboplast Time Sodium Level 139 Potassium Level 5.0 Chloride Level 105 Carbon Dioxide Level 27.1 Anion Gap 7 Blood Urea Nitrogen 14 Creatinine 1.00 Estimat Glomerular Filtration 60 Rate Random Glucose 127 Calcium Level 8.6 Magnesium Level 2.4 Total Creatine Kinase 183 89 81 Creatine Kinase MB 0.6 Troponin I LESS THAN 0.02 LESS THAN 0.02 LESS THAN 0.02 Lipase 129 Result Diagram: 09/13/16194409/13/161944 Imaging Last Impressions Chest X-Ray 09/13/161942 Signed Impressions: Service Date/Time: August 19:58 - CONCLUSION: No acute disease. Tomas Garcia MD Assessment and Plan Assessment and Plan Chest pain, atypical: Patient with risk factors to include hypertension, body habitus, coronary artery disease, family history of heart disease. Patient had been ruled out for any acute coronary event with serial cardiac enzymes which are negative and serial EKGs which are unchanged. we'll pursue nuclear stress test to rule out any underlying ischemia. Hypertension: Untreated. Stable this time. Defer to primary medical doctor for management Hyperlipidemia: Untreated. Bipolar disorder: Home medications have been continued DVT prevention: Low risk, early ambulation Written by Anshul Velazquez PA-C, acting as scribe for Dr. Bean on 09/14/16 at 1435. The documentation accurately reflects the work and decisions performed face-to- face by Dr. Bean on 09/14/16 at 1435. Discharge disposition Discharge home in stable condition Activity: Ad ernie. Diet: Healthy heart diet Medications per medication reconciliation Follow-up with primary medical doctor in one week Discussed Condition With All or portions of this note were transcribed by scribe Anshul Velazquez. I, Dr. Donna Bean personally performed the history, physical exam, and medical decision making; and confirmed the accuracy of the information in the transcribed note. Authenticated by Dr. Donna Bean on 09/14/16 at 17:58. Problem Qualifiers (1) Chest pain: Qualified Code: R07.2 - Precordial pain Anshul Velazquez Sep 14, 2016 11:03 Donna Bean MD Sep 14, 2016 17:58
[2016-09-14] MEDS ORDERED: REGADENOSON INJ 0.4 MG/5 ML SYR IV ONE (12:29)
--- NOTE | 2016-09-14 13:30 | RADHPO ---
EXAM DATE/TIME: 09/14/2016 12:41 [facility] COMPARISON: MYOCARDIAL PERF PHARM SPECT, GATED W/EF, May 27, 2015, 10:16. INDICATIONS : Substernal chest pain with nausea and dyspnea. Angina. Coronary artery disease. DOSE: 35 mCi Tc99m Myoview at stress. 11 mCi Tc99m Myoview at rest. 0.4 mg Lexiscan STRESS SYMPTOMS: Dyspnea. EJECTION FRACTION: 68% MEDICAL HISTORY : Hypertension. Stroke Bipolar disorder. SURGICAL HISTORY : Appendectomy. Cholecystectomy. Tubal ligation. Hysterectomy. ENCOUNTER: Initial ACUITY: 1 day PAIN SCALE: 6/10 LOCATION: Substernal chest TECHNIQUE: The patient underwent pharmacologic stress with infusion of prescribed dose. Continuous ECG tracing was monitored during stress. Gated SPECT imaging was performed after stress and conventional SPECT i maging was performed at rest. The examination was performed on a SPECT/CT scanner, both attenuation and non-corrected datasets were reviewed. FINDINGS: DISTRIBUTION: The maximum perfused segment at stress is in the inferolateral wall. PERFUSION STUDY: The pattern of perfusion at stress is within normal limits. GATED STUDY: There is intact wall motion and thickening without hypokinetic or dyskinetic segments. CONCLUSION: Unremarkable myocardial perfusion scan. RISK CATEGORY: Low (<1% Annual Mortality Rate) Ward Ojeda MD on September 14, 2016 at 13:28 Board Certified Radiologist. This report was verified electronically.
--- NOTE | 2016-09-14 13:47 | HHI.DCPOC ---
Discharge Care Plan Diagnosis: (1) Chest pain Goals to Promote Your Health * To prevent worsening of your condition and complications * To maintain your health at the optimal level Directions to Meet Your Goals Take your medications as prescribed Follow your dietary instruction Follow activity as directed Keep your appointments as scheduled Take your immunizations and boosters as scheduled If your symptoms worsen call your PCP, if no PCP go to Urgent Care Center or Emergency Room Smoking is Dangerous to Your Health. Avoid second hand smoke Call the 24-hour hour crisis hotline for domestic abuse at Anshul Velazquez Sep 14, 2016 13:47
--- NOTE | 2016-09-14 14:18 | TR ---
Date Performed: 09/14/2016 Time Performed: 12:42:16 DOCTOR: Jennifer Gooden DRUG LIST: CLINICAL HISTORY: CHEST PAIN CHEST PAIN REASON FOR TEST: Chest pain REASON FOR ENDING: OBSERVATION: CONCLUSION: Lexiscan stress test was performed under standard four minute protocol. Radionuclid e was injected one minute prior to ending the test. No electrocardiographic abormalities were present to suggest ischemia. Nuclear imaging and interpretation are pending. COMMENTS:
--- NOTE | 2016-09-14 16:47 | EKG ---
Date Performed: 09/13/2016 Time Performed: 19:34:32 PTAGE: 46 years EKG: Sinus tachycardia rSr'(V1) - probable normal variant Anterior T wave changes are nonspecifi c Low QRS voltages in precordial leads Compared to prior tracing no significant change Borderline ECG PREVIOUS TRACING : 01/15/2016 19.57 DOCTOR: Liliya Aponte Interpretating Date/Time 09/14/2016 16:45:26
--- NOTE | 2016-09-14 16:47 | EKG ---
Date Performed: 09/13/2016 Time Performed: 23:06:30 PTAGE: 46 years EKG: Sinus rhythm rSr'(V1) - probable normal variant Anterior T wave changes are nonspecific Low QRS voltages in preco rdial leads Compared to prior tracing no significant change Borderline ECGPREVIOUS TRACING : 19.34 DOCTOR: Liliya Aponte Interpretating Date/Time 09/14/2016 16:45:48
--- NOTE | 2016-09-14 16:48 | EKG ---
Date Performed: 09/14/2016 Time Performed: 01:42:20 PTAGE: 46 years EKG: Sinus rhythm rSr'(V1) - probable normal variant Anterior T wave changes are nonspecific Compared to prior tracing no significant change Borderline ECG PREVIOUS TRACING : 09/13/2016 23.06 DOCTOR: Liliya Aponte Interpretating Date/Time 09/14/2016 16:45:57
[2016-09-14] MEDS ORDERED: OLANZapine 5 MG TAB PO SCH (21:00)
== END 2016-09-14 14:54 | disposition home or self-care (01) ==
LOC: PHED 19:28 → PHEDA 21:13 → PHEDH 09-14 01:13 → PH3B 09-14 08:39
PROVIDERS: ADMIT Family Medicine; ATTEND Family Medicine
DX: R07.89 Other chest pain (principal); I10 Essential (primary) hypertension; F31.9 Bipolar disorder, unspecified; E78.5 Hyperlipidemia, unspecified; I25.10 Atherosclerotic heart disease of native coronary artery without angina pectoris; M19.90 Unspecified osteoarthritis, unspecified site; Z88.6 Allergy status to analgesic agent; F41.9 Anxiety disorder, unspecified; E78.00 Pure hypercholesterolemia, unspecified; K21.9 Gastro-esophageal reflux disease without esophagitis; G43.909 Migraine, unspecified, not intractable, without status migrainosus; Z86.73 Personal history of transient ischemic attack (TIA), and cerebral infarction without residual deficits; Z88.7 Allergy status to serum and vaccine
CPT/HCPCS: 71010; 78452; 80048; 82550; 82552; 83690; 83735; 84484; 85025; 85610; 85730; 93005; 93017; 99285; A9502; C9113; G0378; J2270; J2405; J2785; J7030

== ENCOUNTER 2017-03-12 18:58 | Emergency (ER) | payer OTHER ==
[~2017-03-12] VITALS: Ht 170.2 cm; Wt 120.1 kg
[2017-03-12 19:00] VITALS: BP 160/108; PULSE 105; RESP 16; TEMP 97.8; O2SAT 96
[2017-03-12] MEDS ORDERED: SODIUM CHLORIDE 0.9% FLUSH 10 ML FLUSH IV FLUSH PRN (19:45)
[2017-03-12 19:59] LABS: BASOPHIL # 0.1 TH/MM3 (0-0.2); BASOPHIL % 0.9 % (0.0-2.0); EOSINOPHIL # 0.1 TH/MM3 (0-0.4); EOSINOPHIL % 1.3 % (0.0-4.0); HEMO FLAGS DIFF FINAL; LYMPHOCYTE # 4.1 TH/MM3 (1.0-4.8); MEAN CELL VOLUME 84.6 FL (80.0-100.0); MEAN CORPUSCULAR HEMOGLOBIN 28.4 PG (27.0-34.0); MEAN CORPUSCULAR HGB CONC 33.6 % (32.0-36.0); MONO % 5.2 % (0.0-8.0); NEUT % 45.6 % (16.0-70.0); PLATELET COUNT 202 TH/MM3 (150-450); RED BLOOD COUNT 4.97 MIL/MM3 (4.00-5.30); RED CELL DISTRIBUTION WIDTH 12.6 % (11.6-17.2); WHITE BLOOD COUNT 8.8 TH/MM3 (4.0-11.0)
[2017-03-12 20:00] VITALS: O2SAT 97
--- NOTE | 2017-03-12 20:00 | RADRPT ---
EXAM DATE/TIME: 03/12/2017 19:54 [facility] COMPARISON: No previous studies available for comparison. INDICATIONS : Chest pain for 2 days. MEDICAL HISTORY : None. SURGICAL HISTORY : None. ENCOUNTER: Initial ACUITY: 2 days PAIN SCORE: 6/10 LOCATION: Bilateral chest FINDINGS: A single view of the chest demonstrates the lungs to be symmetrically aerated without evidence of mas s, infiltrate or effusion. The cardiomediastinal contours are unremarkable. Osseous structures are intact. CONCLUSION: No evidence of acute cardiopulmonary disease. Ruben Lala MD on March 12, 2017 at 19:58 Board Certified Radiologist. This report was verified electronically.
--- NOTE | 2017-03-12 20:08 | PD ---
HPI Chief Complaint: Abdominal Pain Time Seen by Provider: 19:31 Travel History International Travel<30 days: No Contact w/Intl Traveler<30days: No Traveled to known affect area: No History of Present Illness HPI 46-year-old female presents to the emergency department for complaint of one month of right lower quadrant abdominal pain. Patient is unable to identify exacerbating factors. Patient denies any alleviating factors and states she's attempted acetaminophen for pain relief without success. Patient reports she is unable to take ibuprofen or nonsteroidal anti-inflammatory medications due to history of ulcers and sensitivity to aspirin. Patient reportedly had a fever of 102F 2 days ago but has had no other fevers throughout the past month or today or yesterday. Patient states she did take acetaminophen for the one- time temperature elevation with good fever control. Patient's had no sinus congestion no sore throat no earache no neck pain no cough no congestion no shortness of breath. Patient's had stabbing chest pain. Patient states approximately 4 months ago she had dull chest pain and was evaluated with a stress test that was reportedly normal. Patient does not describe any pleuritic chest pain. Patient's had no productive cough. Patient's had no shortness of breath. Patient denies any vomiting but has had nausea. Patient denies any constipation or diarrhea or blood in her stool or black tarry stool. No dysuria frequency or urgency. Patient denies vaginal bleeding or discharge. Patient is status post partial hysterectomy due to history of fibroids; patient is also status post appendectomy. Patient states that she has both ovaries intact and does have history of ovarian cyst. Patient states pain reminds her of previous ovarian cyst pain. Patient has not seen an oncotic just is reportedly ran a management coordinator in the area that accept her insurance. Patient rates her right lower quadrant abdominal pain 6/10 in intensity and her sharp chest pain for over 10 in intensity. Patient denies history of kidney stones UTI pyelonephritis diverticulitis or colitis. PFSH Past Medical History Narrative Medical Arthritis anxiety depression hypertension cardiac catheterization reported normal stress test CVA with TPA bipolar arrhythmia peptic ulcer disease GERD tubal ligation partial hysterectomy cholecystectomy appendectomy tonsillectomy occasional alcohol use nursing notes reviewed Hx Anticoagulant Therapy: No Arthritis: Yes Blood Disorders: No Bipolar Disorder: Yes Anxiety: Yes Depression: Yes Heart Rhythm Problems: No Cancer: No Cardiac Catheterization: Yes (2008 IN [place]) Cardiovascular Problems: Yes (ARRYTHMIA) High Cholesterol: Yes Chemotherapy: No Chest Pain: Yes Congestive Heart Failure: No Cerebrovascular Accident: Yes (TIA 2013) Diabetes: No Diminished Hearing: No Endocrine: No Gastrointestinal Disorders: Yes (peptic ulcer disease , colon biopsy ) GERD: Yes Genitourinary: Yes Headaches: Yes Herniated Disk: Yes (L4, L5) Hypertension: Yes Immune Disorder: No Implanted Vascular Access Dvce: Yes Musculoskeletal: Yes (DEGENERATIVE DISC DISEASE, HERNIATED DISC L3,4 AND 5) Neurologic: Yes (TIA w/ TPA 2013) Psychiatric: Yes (bipolar ) Reproductive: No Respiratory: No Immunizations Current: Yes Migraines: Yes Radiation Therapy: No Seizures: No Thyroid Disease: No Ulcer: Yes Influenza Vaccination: Yes PNEUMOCCOCAL Vaccine (Year): 2 ?: Not Menopausal: Yes : 2 Para: 2 Tubal Ligation: Yes Past Surgical History Appendectomy: Yes Body Medical Devices: post on tooth Cardiac Surgery: Yes (cardiac cath ) Cholecystectomy: Yes Coronary Artery Bypass Graft: No Gynecologic Surgery: Yes (partial hysterectomy, tubal ligation ) Hysterectomy: Yes Oral Surgery: Yes (tonsillectomy, oral surg w/ metal post implanted upper ) Tonsillectomy: Yes Other Surgery: Yes (INTESTINAL ADHESIONS) Family History Family Myocardial Infarction: Yes (FATHER) Social History Alcohol Use: Yes (SOCIALLY) Tobacco Use: No Substance Use: No Allergies-Medications (Allergen,Severity, Reaction): Coded Allergies: pneumococcal vaccine (Unverified Allergy, Severe, ANAPHYLAXIS, 01/29/17) aspirin (Unverified Adverse Reaction, Intermediate, GI UPSET, 01/29/17) "IT GAVE ME A BLEEDING ULCER" Reported Meds & Prescriptions Reported Meds & Active Scripts Active Reported Olanzapine 5 Mg Tab 10 Mg PO HS Xanax Xr 24 HR (Alprazolam) 1 Mg Tab 1 Mg PO HS Take tablet intact, preferably in the morning. Lamictal (Lamotrigine) 200 Mg Tab 400 Mg PO HS Physical Exam Narrative GENERAL: Well-developed well-nourished obese female in no acute distress no respiratory distress SKIN: Warm and dry. HEAD: Normocephalic. EYES: No scleral icterus. No injection or drainage. NECK: Supple, trachea midline. No JVD or lymphadenopathy. CARDIOVASCULAR: Regular rate and rhythm without murmurs, gallops, or rubs. RESPIRATORY: Breath sounds equal bilaterally. No accessory muscle use. GASTROINTESTINAL: Abdomen soft, non-tender, nondistended. No guarding or rebound nontender to palpation. MUSCULOSKELETAL: No cyanosis, or edema. BACK: Nontender without obvious deformity. No CVA tenderness. Data Data Last Documented VS Vital Signs Date Time Temp Pulse Resp B/P (MAP) Pulse Ox O2 Delivery O2 Flow Rate FiO2 03/12/17 20:22 98 148/82 (104) 97 03/12/17 19:00 97.8 16 Orders Orders Complete Blood Count With Diff (03/12/17 19:31) Comprehensive Metabolic Panel (03/12/17 19:31) Lipase (03/12/17 19:31) Lactic Acid (03/12/17 19:31) Urinalysis - C+S If Indicated (03/12/17 19:31) Iv Access Insert/Monitor (03/12/17 19:31) Ecg Monitoring (03/12/17 19:31) Oximetry (03/12/17 19:31) Sodium Chloride 0.9% Flush (Ns Flush) (03/12/17 19:45) Electrocardiogram (03/12/17 19:31) Chest, Single Ap (03/12/17 19:31) Troponin I (03/12/17 19:31) Ckmb (Isoenzyme) Profile (03/12/17 19:31) Labs Laboratory Tests Test 03/12/17 19:37 03/12/17 19:50 Urine Color YELLOW Urine Turbidity CLEAR Urine pH 5.5 Urine Specific [place] 1.020 Urine Protein NEG mg/dL Urine Glucose (UA) NEG mg/dL Urine Ketones NEG mg/dL Urine Occult Blood NEG Urine Nitrite NEG Urine Bilirubin NEG Urine Leukocyte Esterase NEG Urine RBC 0-3 /hpf Urine WBC 0-2 /hpf Urine Squamous Epithelial Cells 0-5 /hpf Microscopic Urinalysis Comment CULT NOT INDICATED White Blood Count 8.8 TH/MM3 Red Blood Count 4.97 MIL/MM3 Hemoglobin 14.1 GM/DL Hematocrit 42.0 % Mean Corpuscular Volume 84.6 FL Mean Corpuscular Hemoglobin 28.4 PG Mean Corpuscular Hemoglobin Concent 33.6 % Red Cell Distribution Width 12.6 % Platelet Count 202 TH/MM3 Mean Platelet Volume 9.0 FL Neutrophils (%) (Auto) 45.6 % Lymphocytes (%) (Auto) 47.0 % Monocytes (%) (Auto) 5.2 % Eosinophils (%) (Auto) 1.3 % Basophils (%) (Auto) 0.9 % Neutrophils # (Auto) 4.0 TH/MM3 Lymphocytes # (Auto) 4.1 TH/MM3 Monocytes # (Auto) 0.5 TH/MM3 Eosinophils # (Auto) 0.1 TH/MM3 Basophils # (Auto) 0.1 TH/MM3 CBC Comment DIFF FINAL Differential Comment Blood Urea Nitrogen 7 MG/DL Creatinine 0.79 MG/DL Random Glucose 94 MG/DL Total Protein 7.3 GM/DL Albumin 3.3 GM/DL Calcium Level 8.7 MG/DL Alkaline Phosphatase 108 U/L Aspartate Amino Transf (AST/SGOT) 19 U/L Alanine Aminotransferase (ALT/SGPT) 25 U/L Total Bilirubin 0.7 MG/DL Sodium Level 140 MEQ/L Potassium Level 3.5 MEQ/L Chloride Level 106 MEQ/L Carbon Dioxide Level 24.7 MEQ/L Anion Gap 9 MEQ/L Estimat Glomerular Filtration Rate 79 ML/MIN Lactic Acid Level 1.7 mmol/L Total Creatine Kinase 70 U/L Troponin I LESS THAN 0.02 NG/ML Lipase 106 U/L MDM Medical Decision Making Medical Screen Exam Complete: Yes Emergency Medical Condition: Yes Medical Record Reviewed: Yes (low risk stress test 08/2016) Interpretation(s) EKG sinus rhythm rate [address] elevation or injury pattern change noted Differential Diagnosis Abdominal pain, muscular skeletal pain, UTI, ureterolithiasis with obstructive uropathy, ovarian cysts, colitis, diverticulitis; unlikely ischemic colitis unlikely ovarian torsion Narrative Course Specimens collected and sent for resulting. EKG sinus rhythm no acute injury pattern change noted; chest x-ray no subdiaphragmatic free air or infiltrate CBC metabolic panel cardiac enzymes and lactic acid advised all found to be in normal range Patient has a soft nontender abdomen; at this time no further diagnostic studies are indicated and patient is stable for outpatient management; for complaint of inflammatory type pain she is offered a one-time dose of Toradol 60 mg IM and this is unlikely to cause any kind of exacerbation of remote history of gastritis or peptic ulcer disease although will not encourage the patient to use non-steroidal anti-inflammatories on a routine basis due to her history of sensitivity to aspirin associated with reported peptic ulcer disease and gastritis. Patient encouraged to use as tolerated as directed acetaminophen for discomfort and to follow-up with primary care provider. Patient is agreeable to one-time dose of Toradol and stable for outpatient management. Diagnosis Primary Impression: Abdominal pain Qualified Codes: R10.31 - Right lower quadrant pain Additional Impression: Atypical chest pain Referrals: [facility] call for appointment Primary Care Physician call for appointment Patient Instructions: General Instructions Additional Instructions: Increase fluid hydration Continue chronic medications as chronically prescribed May take as tolerated acetaminophen/Tylenol for discomfort or for fever 100.4 days Fahrenheit or greater May apply moist heat to area for comfort as needed Follow-up with primary care provider or his area health provider Return to the emergency department for any concerns or change condition Med/Other Pt SpecificInfo: No Change to Meds Disposition: 01 DISCHARGE HOME Condition: Stable Marlys Holt MD Mar 12, 2017 20:08
[2017-03-12 20:09] LABS: BLOOD, URINE NEG (NEG); GLUCOSE,URINE NEG (NEG); KETONE, URINE NEG (NEG); NITRITE,URINE NEG (NEG); PH, URINE 5.5 (5.0-8.5)
[2017-03-12 20:11] LABS: CHLORIDE 106 MEQ/L (98-107); POTASSIUM 3.5 MEQ/L (3.5-5.1); SODIUM (NA) 140 MEQ/L (136-145)
[2017-03-12 20:15] LABS: ANION GAP 9 MEQ/L (5-15); BICARBONATE 24.7 MEQ/L (21.0-32.0); BLOOD UREA NITROGEN 7 MG/DL (7-18)
[2017-03-12 20:18] LABS: ALT (GPT) 25 U/L (10-53); AST (GOT) 19 U/L (15-37); GLOMERULAR FILTRATION RATE 79 ML/MIN (>89)
[2017-03-12 20:19] LABS: TOTAL BILIRUBIN ADULT 0.7 MG/DL (0.2-1.0)
[2017-03-12 20:21] LABS: ALKALINE PHOSPHATASE 108 U/L (45-117)
[2017-03-12 20:22] VITALS: BP 148/82; PULSE 98; O2SAT 97
[2017-03-12 20:23] LABS: URINE COLOR YELLOW (YELLW/STRAW)
[2017-03-12 20:24] LABS: COMMENT (UR) CULT NOT INDICATED; CULTURE IF INDICATED CULT NOT INDICATED; RBC, URINE 0-3 /hpf (0-3); SQUAMOUS EPITHELIAL CELL URINE 0-5 /hpf (0-5); WBC, URINE 0-2 /hpf (0-5)
[2017-03-12 20:27] LABS: CREATINE KINASE 70 U/L (26-192)
[2017-03-12] MEDS ORDERED: KETOROLAC TROMETHAMINE 60 MG/2 ML (IM) VIAL IM ONE (21:15)
--- NOTE | 2017-03-13 15:07 | EKG ---
Date Performed: 03/12/2017 Time Performed: 19:42:10 PTAGE: 46 years EKG: Sinus rhythm NONSPECIFIC T-WAVE ABNORMALITY BORDERLINE ECG PREVIOUS TRACING : 09/14/2016 01.42 Compared to prior tracing no significant change DOCTOR: Gregory Black Interpretating Date/Time 03/13/2017 15:04:57
== END 2017-03-12 21:21 | disposition home or self-care (01) ==
LOC: PHED 18:58
DX: R10.31 Right lower quadrant pain (principal); R07.89 Other chest pain; R11.0 Nausea; R94.31 Abnormal electrocardiogram [ECG] [EKG]; I10 Essential (primary) hypertension; E78.00 Pure hypercholesterolemia, unspecified; Z87.39 Personal history of other diseases of the musculoskeletal system and connective tissue; Z86.59 Personal history of other mental and behavioral disorders; Z86.79 Personal history of other diseases of the circulatory system; Z87.19 Personal history of other diseases of the digestive system; Z87.448 Personal history of other diseases of urinary system; Z86.69 Personal history of other diseases of the nervous system and sense organs
CPT/HCPCS: 71010; 80053; 81001; 82550; 83605; 83690; 84484; 85025; 93005; 96372; 99285; J1885

== ENCOUNTER 2017-06-27 12:28 | Observation (INO) | payer OTHER ==
[2017-06-27] VITALS (9 sets, daily range): BP systolic 102–165; BP diastolic 70–97; PULSE 103–120; RESP 18–20; TEMP 98.5–99.4; O2SAT 95–99
[~2017-06-27] VITALS: Ht 170.2 cm; Wt 116.9 kg
[2017-06-27] MEDS ORDERED: TRAZ100T10 PO (13:48)
[2017-06-27] MEDS ORDERED: OMEP20TA93 PO (13:48)
[2017-06-27] MEDS ORDERED: TEMA30CA PO (13:48)
--- NOTE | 2017-06-27 14:08 | PD ---
HPI Chief Complaint: Chest Pain Time Seen by Provider: 13:58 Travel History International Travel<30 days: No Contact w/Intl Traveler<30days: No Traveled to known affect area: No History of Present Illness HPI This 47-year-old female says she started having chest pain around 1:00 this morning. sHe describes it as a sharp substernal pain. It is not pleuritic. She says she has a history of coronary artery disease. She had a blockage of one time that she says was too small to do anything with. She has been evaluated in the chest pain center in the past with normal results, the last time was in August of 2016. She did have a TIA in 2013 which was treated with TPA. She is allergic to aspirin. She does not take any blood thinners. She does not smoke. She has had a partial hysterectomy. Since the pain started it has been fairly constant PFSH Past Medical History Hx Anticoagulant Therapy: No Arthritis: Yes Blood Disorders: No Bipolar Disorder: Yes Anxiety: Yes Depression: Yes Heart Rhythm Problems: No Cancer: No Cardiac Catheterization: Yes (2008 IN [place]) Cardiovascular Problems: Yes (ARRYTHMIA) High Cholesterol: Yes Chemotherapy: No Chest Pain: Yes Congestive Heart Failure: No Cerebrovascular Accident: Yes (TIA 2013) Diabetes: No Diminished Hearing: No Endocrine: No Gastrointestinal Disorders: Yes (peptic ulcer disease , colon biopsy ) GERD: Yes Genitourinary: Yes Headaches: Yes Herniated Disk: Yes (L4, L5) Hypertension: Yes Immune Disorder: No Implanted Vascular Access Dvce: Yes Musculoskeletal: Yes (DEGENERATIVE DISC DISEASE, HERNIATED DISC L3,4 AND 5) Neurologic: Yes (TIA w/ TPA 2013) Psychiatric: Yes (bipolar ) Reproductive: No Respiratory: No Immunizations Current: Yes Migraines: Yes Radiation Therapy: No Seizures: No Thyroid Disease: No Ulcer: Yes (PAST AGE 14) Tetanus Vaccination: < 5 Years Influenza Vaccination: No PNEUMOCCOCAL Vaccine (Year): 2 ?: Not Menopausal: Yes : 2 Para: 2 Tubal Ligation: Yes Past Surgical History Appendectomy: Yes Body Medical Devices: post on tooth Cardiac Surgery: Yes (cardiac cath ) Cholecystectomy: Yes Coronary Artery Bypass Graft: No Gynecologic Surgery: Yes (partial hysterectomy, tubal ligation ) Hysterectomy: Yes Oral Surgery: Yes (tonsillectomy, oral surg w/ metal post implanted upper ) Tonsillectomy: Yes Other Surgery: Yes (INTESTINAL ADHESIONS) Social History Alcohol Use: Yes (SOCIALLY) Tobacco Use: No Substance Use: No Allergies-Medications (Allergen,Severity, Reaction): Coded Allergies: pneumococcal vaccine (Unverified Allergy, Severe, ANAPHYLAXIS, 06/27/17) aspirin (Unverified Adverse Reaction, Intermediate, GI UPSET, 06/27/17) "IT GAVE ME A BLEEDING ULCER" Reported Meds & Prescriptions Reported Meds & Active Scripts Active Reported Temazepam 30 Mg Cap 30 Mg PO HS PRN Omeprazole 20 Mg Tab 20 Mg PO DAILY Trazodone (Trazodone HCl) 100 Mg Tablet 100 Mg PO HS Olanzapine 5 Mg Tab 10 Mg PO HS Lamictal (Lamotrigine) 200 Mg Tab 400 Mg PO HS Review of Systems General / Constitutional: No: Fever, Chills Eyes: No: Diploplia, Blurred Vision HENT: No: Headaches, Vertigo Cardiovascular: Positive: Chest Pain or Discomfort, No: Palpitations, Irregular Rhythm Respiratory: No: Cough, Shortness of Breath Gastrointestinal: No: Nausea, Vomiting Genitourinary: No: Urgency, Frequency Musculoskeletal: No: Myalgias, Arthralgias Skin: No Rash, No Itching Neurologic: No: Weakness, Dizziness Endocrine: No: Heat Intolerance Physical Exam Narrative GENERAL well-appearing female SKIN: Focused skin assessment warm/dry. HEAD: Atraumatic. Normocephalic. EYES: Pupils equal and round. No scleral icterus. No injection or drainage. ENT: No nasal bleeding or discharge. Mucous membranes pink and moist. NECK: Trachea midline. No JVD. CARDIOVASCULAR: Regular rate and rhythm. No murmur appreciated. RESPIRATORY: No accessory muscle use. Clear to auscultation. Breath sounds equal bilaterally. GASTROINTESTINAL: Abdomen soft, non-tender, nondistended. Hepatic and splenic margins not palpable. MUSCULOSKELETAL: No obvious deformities. No clubbing. No cyanosis. No edema. NEUROLOGICAL: Awake and alert. No obvious cranial nerve deficits. Motor grossly within normal limits. Normal speech. PSYCHIATRIC: Appropriate mood and affect; insight and judgment normal. Data Data Last Documented VS Vital Signs Date Time Temp Pulse Resp B/P (MAP) Pulse Ox O2 Delivery O2 Flow Rate FiO2 06/27/17 15:10 105 18 134/78 (96) 99 Room Air 06/27/17 14:03 98.8 Orders Orders Electrocardiogram (1/11/18 14:06) Complete Blood Count With Diff (06/27/17 14:06) Basic Metabolic Panel (Bmp) (06/27/17 14:06) Troponin I (06/27/17 14:06) Chest, Single Ap (06/27/17 14:06) Ondansetron Inj (Zofran Inj) (06/27/17 14:15) Morphine Inj (Morphine Inj) (06/27/17 14:15) Morphine Inj (Morphine Inj) (06/27/17 14:15) D-Dimer (06/27/17 14:08) Labs Laboratory Tests Test 06/27/17 14:20 White Blood Count 8.2 TH/MM3 Red Blood Count 4.74 MIL/MM3 Hemoglobin 13.3 GM/DL Hematocrit 40.2 % Mean Corpuscular Volume 84.9 FL Mean Corpuscular Hemoglobin 28.2 PG Mean Corpuscular Hemoglobin Concent 33.2 % Red Cell Distribution Width 12.7 % Platelet Count 205 TH/MM3 Mean Platelet Volume 8.8 FL Neutrophils (%) (Auto) 59.0 % Lymphocytes (%) (Auto) 34.0 % Monocytes (%) (Auto) 5.5 % Eosinophils (%) (Auto) 0.5 % Basophils (%) (Auto) 1.0 % Neutrophils # (Auto) 4.9 TH/MM3 Lymphocytes # (Auto) 2.8 TH/MM3 Monocytes # (Auto) 0.4 TH/MM3 Eosinophils # (Auto) 0.0 TH/MM3 Basophils # (Auto) 0.1 TH/MM3 CBC Comment DIFF FINAL Differential Comment D-Dimer Quantitative (PE/DVT) LESS THAN 0.19 MG/L FEU Blood Urea Nitrogen 11 MG/DL Creatinine 0.86 MG/DL Random Glucose 92 MG/DL Calcium Level 8.3 MG/DL Sodium Level 139 MEQ/L Potassium Level 3.8 MEQ/L Chloride Level 106 MEQ/L Carbon Dioxide Level 26.0 MEQ/L Anion Gap 7 MEQ/L Estimat Glomerular Filtration Rate 71 ML/MIN Troponin I LESS THAN 0.02 NG/ML MDM Medical Decision Making Medical Screen Exam Complete: Yes Emergency Medical Condition: Yes Medical Record Reviewed: Yes Differential Diagnosis Differential includes atypical chest pain, coronary artery disease, Narrative Course * EKG shows normal sinus rhythm. Chest x-ray is negative troponin is negative. Patient will be admitted to chest pain center for further evaluation Diagnosis Primary Impression: Chest pain Admitting Information Admitting Physician Requests: Observation Darío Vivas MD Jun 27, 2017 14:08
[2017-06-27] MEDS ORDERED: ONDANSETRON HCL 4 MG/2 ML VIAL IV PUSH ONE (14:15)
[2017-06-27] MEDS ORDERED: MORPHINE SULFATE 2 MG/ML INJ IV PUSH ONE ×2 (14:15)
[2017-06-27 14:22] LABS: AUTOMATED NEUTROPHIL # 4.9 TH/MM3 (1.8-7.7); BASOPHIL # 0.1 TH/MM3 (0-0.2); EOSINOPHIL % 0.5 % (0.0-4.0); HEMATOCRIT 40.2 % (35.0-46.0); HEMOGLOBIN 13.3 GM/DL (11.6-15.3); LYMPHOCYTE # 2.8 TH/MM3 (1.0-4.8); MEAN CELL VOLUME 84.9 FL (80.0-100.0); MEAN CORPUSCULAR HEMOGLOBIN 28.2 PG (27.0-34.0); MEAN CORPUSCULAR HGB CONC 33.2 % (32.0-36.0); MEAN PLATELET VOLUME 8.8 FL (7.0-11.0); MONO % 5.5 % (0.0-8.0); MONOCYTE # 0.4 TH/MM3 (0-0.9); PLATELET COUNT 205 TH/MM3 (150-450); RED BLOOD COUNT 4.74 MIL/MM3 (4.00-5.30); RED CELL DISTRIBUTION WIDTH 12.7 % (11.6-17.2); WHITE BLOOD COUNT 8.2 TH/MM3 (4.0-11.0)
--- NOTE | 2017-06-27 14:35 | RADRPT ---
EXAM DATE/TIME: 06/27/2017 14:15 [facility] COMPARISON: CHEST SINGLE AP, March 12, 2017, 19:54. INDICATIONS : Chest pain since this morning. MEDICAL HISTORY : None. SURGICAL HISTORY : None. ENCOUNTER: Initial ACUITY: 1 day PAIN SCORE: 4/10 LOCATION: Bilateral chest FINDINGS: A single view of the chest demonstrates the lungs to be symmetrically aerated without evidence of mas s, infiltrate or effusion. The cardiomediastinal contours are unremarkable. Osseous structures are intact. CONCLUSION: No acute disease. Jesus Tipton MD on June 27, 2017 at 14:31 Board Certified Radiologist. This report was verified electronically.
[2017-06-27 14:36] LABS: CHLORIDE 106 MEQ/L (98-107); SODIUM (NA) 139 MEQ/L (136-145)
[2017-06-27 14:39] LABS: BLOOD UREA NITROGEN 11 MG/DL (7-18); CALCIUM 8.3 MG/DL (8.5-10.1); GLUCOSE,RANDOM 92 MG/DL (74-106)
[2017-06-27 14:42] LABS: CREATININE 0.86 MG/DL (0.50-1.00); GLOMERULAR FILTRATION RATE 71 ML/MIN (>89)
[2017-06-27 14:47] LABS: TROPONIN I LESS THAN 0.02 NG/ML (0.02-0.05)
[2017-06-27] MEDS ORDERED: BISACODYL 10 MG SUPP RECTAL PRN (16:15)
[2017-06-27] MEDS ORDERED: MAGNESIUM HYDROXIDE SUSP 30 ML CUP PO PRN (16:15)
[2017-06-27] MEDS ORDERED: NALOXONE HCL 0.4 MG/ML AMP IV PUSH PRN (16:15)
[2017-06-27] MEDS ORDERED: SENNOSIDES 8.6 MG TAB PO PRN (16:15)
--- NOTE | 2017-06-27 16:17 | HHI.HP ---
HPI Service [facility] Primary Care Physician Keith King, Admission Diagnosis CHEST PAIN Diagnoses: (1) Chest pain Diagnosis: Principal Chief Complaint: Chest pain Travel History International Travel<30 Days: No Contact w/Intl Traveler <30 Da: No Traveled to Known Affected Are: No History of Present Illness This is a 47-year-old female patient with a known medical history of hyperlipidemia, anxiety, depression, history of TIA and history of chest pain who presented to the ED with complaints of chest pain. Patient states that she has been having chest discomfort since this morning around 1 AM when she was at her sister's house resting. She states that she's been overall feeling generally fatigued the past two days. Patient characterizes this pain as a stabbing pain located in her midsternal chest rated an 8/10 on pain scale at its worst, lasting roughly 1 hour, does admit to associated nausea and shortness of breath, denies any diaphoresis or vomiting. Patient denies any known aggravating factors does state that pain has improved since administration of IV morphine. Now rates the pain as a four out of ten on pain scale. Patient denies any recent illness including fever, chills, shortness of breath, abdominal pain, nausea, vomiting or diarrhea, dysuria. Patient does admit to having this type of chest discomfort roughly one year ago, reportedly underwent a chemical stress test which was normal. Patient states that she does also have a history of blockage without intervention reported on a cardiac catheterization in 2003. It should also be noted that patient has a history of TIA in 2013 and was given TPA. PCP is Dr. King. Review of Systems Constitutional: DENIES: Fever, Chills Eyes: DENIES: Blurred vision, Diplopia Respiratory: DENIES: Cough, Sputum production, Shortness of breath Cardiovascular: COMPLAINS OF: Chest pain, DENIES: Palpitations Gastrointestinal: COMPLAINS OF: Nausea, DENIES: Abdominal pain, Black stools, Bloody stools, Constipation, Diarrhea, Vomiting Musculoskeletal: DENIES: Joint pain Psychiatric: COMPLAINS OF: Anxiety Except as stated in HPI: all other systems reviewed are Neg Past Family Social History Past Medical History Arthritis Anxiety Depression Hypercholesterolemia GERD Hypertension Degenerative disc disease Bipolar disorder History of gastric ulcer Past Surgical History Appendectomy Cholecystectomy Hysterectomy Tubal ligation Tonsillectomy Intestinal adhesions repair History of cardiac catheter Reported Medications Active Reported Temazepam 30 Mg Cap 30 Mg PO HS PRN Omeprazole 20 Mg Tab 20 Mg PO DAILY Trazodone (Trazodone HCl) 100 Mg Tablet 100 Mg PO HS Olanzapine 5 Mg Tab 10 Mg PO HS Lamictal (Lamotrigine) 200 Mg Tab 400 Mg PO HS Allergies: Coded Allergies: pneumococcal vaccine (Unverified Allergy, Severe, ANAPHYLAXIS, 06/27/17) aspirin (Unverified Adverse Reaction, Intermediate, GI UPSET, 06/27/17) "IT GAVE ME A BLEEDING ULCER" Active Ordered Medications Current Medications Medications (Trade) Dose Ordered Sig/Deb Route Start Time Stop Time Status Last Admin (NS Flush) 2 ml UNSCH PRN IV FLUSH 06/27/17 16:15 (NS Flush) 2 ml BID IV FLUSH 06/27/17 21:00 (Tylenol) 650 mg Q4H PRN PO 06/27/17 16:15 (Zofran Inj) 4 mg Q6H PRN IVP 06/27/17 16:15 (Narcan Inj) 0.4 mg UNSCH PRN IV PUSH 06/27/17 16:15 (Karly-Colace) 1 tab BID PO 06/27/17 21:00 (Milk Of Magnesia Liq) 30 ml Q12H PRN PO 06/27/17 16:15 (Senokot) 17.2 mg Q12H PRN PO 06/27/17 16:15 (Dulcolax Supp) 10 mg DAILY PRN RECTAL 06/27/17 16:15 (LaMICtal) 400 mg HS PO 06/27/17 21:00 (ZyPREXA) 10 mg HS PO 06/27/17 21:00 (Protonix) 20 mg DAILY PO 06/28/17 09:00 (Desyrel) 100 mg HS PO 06/27/17 21:00 Family History Maternal medical history significant for diabetes. Social History Any tobacco use. Admits to occasional alcohol use. Denies illicit drug use. Physical Exam Vital Signs Vital Signs Date Time Temp Pulse Resp B/P (MAP) Pulse Ox O2 Delivery O2 Flow Rate FiO2 06/27/17 15:10 105 18 134/78 (96) 99 Room Air 06/27/17 14:03 98.8 115 20 150/70 (96) 99 Room Air 06/27/17 13:49 120 99 Room Air 06/27/17 12:47 99.4 120 18 102/88 (93) 95 Physical Exam GENERAL: This is a well-nourished, well-developed patient, in no apparent distress. SKIN: No rashes, ecchymoses or lesions. Cool and dry. HEAD: Atraumatic. Normocephalic. No temporal or scalp tenderness. EYES: Pupils equal round and reactive. Extraocular motions intact. No scleral icterus. No injection or drainage. ENT: Nose without bleeding, purulent drainage or septal hematoma. Throat without erythema, tonsillar hypertrophy or exudate. Uvula midline. Airway patent. NECK: Trachea midline. No JVD. Supple. CARDIOVASCULAR: Regular rate and rhythm without murmurs, gallops, or rubs. No reproducible chest pain RESPIRATORY: Clear to auscultation. Breath sounds equal bilaterally. No wheezes , rales, or rhonchi. GASTROINTESTINAL: Abdomen soft, non-tender, nondistended. No guarding. MUSCULOSKELETAL: Extremities without clubbing, cyanosis, or edema. No joint tenderness, effusion, or edema noted. NEUROLOGICAL: Awake and alert. Cranial nerves II through XII intact. Motor and sensory grossly within normal limits. Five out of 5 muscle strength in all muscle groups. Normal speech. Laboratory Laboratory Tests Test 06/27/17 14:20 White Blood Count 8.2 Red Blood Count 4.74 Hemoglobin 13.3 Hematocrit 40.2 Mean Corpuscular Volume 84.9 Mean Corpuscular Hemoglobin 28.2 Mean Corpuscular Hemoglobin Concent 33.2 Red Cell Distribution Width 12.7 Platelet Count 205 Mean Platelet Volume 8.8 Neutrophils (%) (Auto) 59.0 Lymphocytes (%) (Auto) 34.0 Monocytes (%) (Auto) 5.5 Eosinophils (%) (Auto) 0.5 Basophils (%) (Auto) 1.0 Neutrophils # (Auto) 4.9 Lymphocytes # (Auto) 2.8 Monocytes # (Auto) 0.4 Eosinophils # (Auto) 0.0 Basophils # (Auto) 0.1 CBC Comment DIFF FINAL Differential Comment D-Dimer Quantitative (PE/DVT) LESS THAN 0.19 Blood Urea Nitrogen 11 Creatinine 0.86 Random Glucose 92 Calcium Level 8.3 Sodium Level 139 Potassium Level 3.8 Chloride Level 106 Carbon Dioxide Level 26.0 Anion Gap 7 Estimat Glomerular Filtration Rate 71 Troponin I LESS THAN 0.02 Result Diagram: 06/27/17 1420 06/27/17 1420 Imaging Last Impressions Chest X-Ray 06/27/17 1406 Signed Impressions: Service Date/Time: June 14:15 - CONCLUSION: No acute disease. Jesus Tipton MD Septic Shock Reassessment Septic shock perfusion: reassessment completed Caprini VTE Risk Assessment Caprini VTE Risk Assessment: No/Low Risk (score <= 1) Caprini Risk Assessment Model Point Value = 1 Point Value = 2 Point Value = 3 Point Value = 5 Age 41-60 Minor surgery BMI > 25 kg/m2 Swollen legs Varicose veins or History of unexplained or recurrent spontaneous Oral contraceptives or hormone replacement Sepsis (< 1 month) Serious lung disease, including pneumonia (< 1 month) Abnormal pulmonary function Acute myocardial infarction Congestive heart failure (< 1 month) History of inflammatory bowel disease Medical patient at bed rest Age 61-74 Arthroscopic surgery Major open surgery (> 45 min) Laparoscopic surgery (> 45 min) Malignancy Confined to bed (> 72 hours) Immobilizing plaster cast Central venous access Age >= 75 History of VTE Family history of VTE Factor V Leiden Prothrombin [id number] Lupus anticoagulant Anticardiolipin antibodies Elevated serum homocysteine Heparin-induced thrombocytopenia Other congenital or acquired thrombophilia Stroke (< 1 month) Elective arthroplasty Hip, pelvis, or leg fracture Acute spinal cord injury (< 1 month) Prophylaxis Regimen Total Risk Factor Score Risk Level Prophylaxis Regimen 0-1 Low Early ambulation 2 Moderate Order ONE of the following: *Sequential Compression Device (SCD) *Heparin 5000 units SQ BID 3-4 Higher Order ONE of the following medications: *Heparin 5000 units SQ TID *Enoxaparin/Lovenox 40 mg SQ daily (WT < 150 kg, CrCl > 30 mL/min) *Enoxaparin/Lovenox 30 mg SQ daily (WT < 150 kg, CrCl > 10-29 mL/min) *Enoxaparin/Lovenox 30 mg SQ BID (WT < 150 kg, CrCl > 30 mL/min) AND/OR *Sequential Compression Device (SCD) 5 or more Highest Order ONE of the following medications: *Heparin 5000 units SQ TID (Preferred with Epidurals) *Enoxaparin/Lovenox 40 mg SQ daily (WT < 150 kg, CrCl > 30 mL/min) *Enoxaparin/Lovenox 30 mg SQ daily (WT < 150 kg, CrCl > 10-29 mL/min) *Enoxaparin/Lovenox 30 mg SQ BID (WT < 150 kg, CrCl > 30 mL/min) AND *Sequential Compression Device (SCD) Assessment and Plan Problem List: (1) Chest pain ICD Code: R07.9 - Chest pain Status: Acute Plan: Patient has been admitted to the chest pain center. Serial EKGs and serial troponins have been ordered for ruling out ACS purposes. Initial troponin flat. EKG reviewed showing sinus tachycardia with right bundle branch block. No ST changes to indicate any ischemia. D-dimer negative. Chest x-ray reviewed, no acute disease. Chest pain currently improving. Will continue pain medication. Naproxen as needed. Continue cardiac telemetry, monitor for any arrhythmias. Supplemental O2 as needed. Further hospitalization and treatment plan will depend on Dr. King. Liza Woodruff Jun 27, 2017 16:17
[2017-06-27] MEDS ORDERED: ASPIRIN 325 MG TAB PO ONE (16:30)
[2017-06-27] MEDS ORDERED: NAPROXEN SODIUM 550 MG TAB PO ONE (17:45)
[2017-06-27 17:59] LABS: TROPONIN I LESS THAN 0.02 NG/ML (0.02-0.05)
[2017-06-27] MEDS ORDERED: NAPROXEN 500 MG TAB PO ONE (18:00)
[2017-06-27 20:55] LABS: TROPONIN I LESS THAN 0.02 NG/ML (0.02-0.05)
[2017-06-27] MEDS: MORPHINE SULFATE 2 MG/ML INJ IV PUSH PRN (20:57)
[2017-06-27] MEDS: lamoTRIgine 100 MG TAB PO SCH (20:58)
[2017-06-27] MEDS: traZODone HCL 100 MG TAB PO SCH (20:59)
[2017-06-27] MEDS: DOCUSATE SODIUM 50 MG/SENNA 8.6 MG TAB PO SCH (21:00)
[2017-06-27] MEDS: SODIUM CHLORIDE 0.9% FLUSH 10 ML FLUSH IV FLUSH SCH (21:00)
[2017-06-27] MEDS: OLANZapine 5 MG TAB PO SCH (21:09)
[2017-06-27] MEDS: ONDANSETRON HCL 4 MG/2 ML VIAL IVP PRN (21:30)
[2017-06-27] MEDS: SODIUM CHLORIDE 0.9% FLUSH 10 ML FLUSH IV FLUSH PRN (21:31)
[2017-06-28] VITALS (10 sets, daily range): BP systolic 97–152; BP diastolic 72–143; PULSE 85–107; RESP 12–18; TEMP 96.4–99.2; O2SAT 94–98
[2017-06-28] MEDS: SODIUM CHLORIDE 0.9% FLUSH 10 ML FLUSH IV FLUSH PRN (02:53)
[2017-06-28] MEDS: MORPHINE SULFATE 2 MG/ML INJ IV PUSH PRN ×4 (02:53→20:25)
--- NOTE | 2017-06-28 08:17 | HHI.PR ---
Subjective Remarks tired this am, complains mild SOB O2 2l. No reported CP Objective Vital Signs Date Time Temp Pulse Resp B/P (MAP) Pulse Ox O2 Delivery O2 Flow Rate FiO2 06/28/17 04:00 96.4 94 18 106/78 (87) 98 06/28/17 03:32 107 06/28/17 00:48 97 21 06/28/17 00:00 97.1 98 18 124/72 (89) 98 06/27/17 20:40 98.5 103 18 151/97 (115) 97 06/27/17 20:15 112 18 134/71 (92) 06/27/17 19:00 115 18 151/79 (103) 95 Room Air 06/27/17 19:00 115 18 95 06/27/17 19:00 18 06/27/17 18:25 96 21 06/27/17 18:02 110 18 156/70 (98) 96 Room Air 06/27/17 16:41 107 18 165/89 (114) 98 Room Air 06/27/17 15:10 105 18 134/78 (96) 99 Room Air 06/27/17 14:03 98.8 115 20 150/70 (96) 99 Room Air 06/27/17 13:49 120 99 Room Air 06/27/17 12:47 99.4 120 18 102/88 (93) 95 I/O 06/27/17 06/27/17 06/27/17 06/28/17 06/28/17 06/28/17 07:00 15:00 23:00 07:00 15:00 23:00 Intake Total 600 ml Balance 600 ml Intake Oral 600 ml # Voids 1 2 1 # Bowel Movements 0 0 Result Diagram: 06/27/17 1420 06/27/17 1420 Imaging Last 24 hours Impressions Chest X-Ray 06/27/17 1406 Signed Impressions: Service Date/Time: June 14:15 - CONCLUSION: No acute disease. Jesus Tipton MD Objective Remarks GENERAL: This is a well-nourished, well-developed patient, in no apparent distress. SKIN: No rashes, ecchymoses or lesions. Cool and dry. HEAD: Atraumatic. Normocephalic. No temporal or scalp tenderness. EYES: Pupils equal round and reactive. Extraocular motions intact. No scleral icterus. No injection or drainage. ENT: Nose without bleeding, purulent drainage or septal hematoma. Throat without erythema, tonsillar hypertrophy or exudate. Uvula midline. Airway patent. NECK: Trachea midline. No JVD. Supple. CARDIOVASCULAR: Regular rate and rhythm without murmurs, gallops, or rubs. No reproducible chest pain RESPIRATORY: Clear to auscultation. Breath sounds equal bilaterally. No wheezes , rales, or rhonchi. GASTROINTESTINAL: Abdomen soft, non-tender, nondistended. No guarding. MUSCULOSKELETAL: Extremities without clubbing, cyanosis, or edema. No joint tenderness, effusion, or edema noted. NEUROLOGICAL: Awake and alert. Cranial nerves II through XII intact. Motor and sensory grossly within normal limits. Five out of 5 muscle strength in all muscle groups. Normal speec Medications and IVs Current Medications Medications (Trade) Dose Ordered Sig/Deb Route Start Time Stop Time Status Last Admin (NS Flush) 2 ml UNSCH PRN IV FLUSH 06/27/17 16:15 06/28/17 02:53 (NS Flush) 2 ml BID IV FLUSH 06/27/17 21:00 06/27/17 21:00 (Tylenol) 650 mg Q4H PRN PO 06/27/17 16:15 (Zofran Inj) 4 mg Q6H PRN IVP 06/27/17 16:15 06/27/17 21:30 (Narcan Inj) 0.4 mg UNSCH PRN IV PUSH 06/27/17 16:15 (Karly-Colace) 1 tab BID PO 06/27/17 21:00 (Milk Of Magnesia Liq) 30 ml Q12H PRN PO 06/27/17 16:15 (Senokot) 17.2 mg Q12H PRN PO 06/27/17 16:15 (Dulcolax Supp) 10 mg DAILY PRN RECTAL 06/27/17 16:15 (LaMICtal) 400 mg HS PO 06/27/17 21:00 06/27/17 20:58 (ZyPREXA) 10 mg HS PO 06/27/17 21:00 06/27/17 21:09 (Protonix) 20 mg DAILY PO 06/28/17 09:00 (Desyrel) 100 mg HS PO 06/27/17 21:00 06/27/17 20:59 (Morphine Inj) 4 mg Q4H PRN IV PUSH 06/27/17 18:00 06/28/17 02:53 (Flu (Quadrivalent) Vaccine Inj) 0.5 ml ONCE ONCE IM 06/28/17 10:00 06/28/17 10:01 Assessment and Plan Assessment and Plan Chest pain- serial EKG/Troponin negative- She is known to Dr Waters, will consult for possible stress test. Did have stress >1 year ago that was fine. Hx of cath in 2004, with some intervention. Will keep NPO Lorraine MUELLER Holly ARNP Jun 28, 2017 08:17
[2017-06-28] MEDS: PANTOPRAZOLE SOD 20 MG DELAYED RELEASE TAB PO SCH (08:27)
[2017-06-28] MEDS: DOCUSATE SODIUM 50 MG/SENNA 8.6 MG TAB PO SCH ×2 (08:28→20:24)
[2017-06-28] MEDS: SODIUM CHLORIDE 0.9% FLUSH 10 ML FLUSH IV FLUSH SCH ×2 (08:35→20:24)
[2017-06-28] MEDS ORDERED: INFLUENZA VIRUS VACCINE (QUADRIVALENT) 0.5 ML SYR IM ONE (10:00)
--- NOTE | 2017-06-28 16:12 | EKG ---
Date Performed: 06/27/2017 Time Performed: 12:37:39 PTAGE: 47 years EKG: SINUS TACHYCARDIA LOW QRS VOLTAGE IN PRECORDIAL LEADS INCOMPLETE RIGHT BUNDLE BRANCH BLOCK NONSPECIFIC T-WAVE ABNORMALITY ABNORMAL RHYTHM ECG PREVIOUS TRACING : 03/12/2017 19.42 Since previous tracing, no significant change noted DOCTOR: Jose Rob Interpretating Date/Time 06/28/2017 16:10:43
--- NOTE | 2017-06-28 16:12 | EKG ---
Date Performed: 06/27/2017 Time Performed: 17:32:04 PTAGE: 47 years EKG: SINUS TACHYCARDIA POSSIBLE RIGHT VENTRICULAR CONDUCTION DELAY NONSPECIFIC T-WAVE ABNORMALIT Y ABNORMAL RHYTHM ECG PREVIOUS TRACING : 06/27/2017 12.37 Since previous tracing, no significant change noted DOCTOR: Jose Rob Interpretating Date/Time 06/28/2017 16:11:04
--- NOTE | 2017-06-28 16:13 | EKG ---
Date Performed: 06/27/2017 Time Performed: 19:58:44 PTAGE: 47 years EKG: SINUS TACHYCARDIA LOW QRS VOLTAGE IN PRECORDIAL LEADS INCOMPLETE RIGHT BUNDLE BRANCH BLOCK NONSPECIFIC T-WAVE ABNORMALITY ABNORMAL RHYTHM ECG PREVIOUS TRACING : 06/27/2017 17.32 Since previous tracing, no significant change noted DOCTOR: Jose Rob Interpretating Date/Time 06/28/2017 16:11:27
[2017-06-28] MEDS: traZODone HCL 100 MG TAB PO SCH (20:24)
[2017-06-28] MEDS: lamoTRIgine 100 MG TAB PO SCH (20:24)
[2017-06-28] MEDS: OLANZapine 5 MG TAB PO SCH (20:24)
[2017-06-28] MEDS: ACETAMINOPHEN 325 MG TAB PO PRN (20:39)
[2017-06-29] VITALS (7 sets, daily range): BP systolic 115–139; BP diastolic 77–83; PULSE 88–103; RESP 18–20; TEMP 97.7–99.3; O2SAT 93–96
[2017-06-29] MEDS: DOCUSATE SODIUM 50 MG/SENNA 8.6 MG TAB PO SCH ×2 (09:00→21:04)
[2017-06-29] MEDS: PANTOPRAZOLE SOD 20 MG DELAYED RELEASE TAB PO SCH (09:12)
[2017-06-29] MEDS: SODIUM CHLORIDE 0.9% FLUSH 10 ML FLUSH IV FLUSH SCH ×2 (09:13→21:05)
[2017-06-29] MEDS: ACETAMINOPHEN 325 MG TAB PO PRN ×2 (13:04→21:08)
--- NOTE | 2017-06-29 15:08 | HHI.PR ---
Subjective Remarks CP resolved and Cards eval is pending. Objective Vital Signs Date Time Temp Pulse Resp B/P (MAP) Pulse Ox O2 Delivery O2 Flow Rate FiO2 06/29/17 12:00 98.7 103 19 123/77 (92) 93 06/29/17 08:08 88 06/29/17 08:00 98.4 103 18 120/80 (93) 95 06/29/17 00:00 99.3 98 18 139/83 (101) 94 06/28/17 22:36 94 06/28/17 20:00 99.2 88 18 97/143 (128) 97 06/28/17 20:00 89 06/28/17 16:00 98.0 92 12 152/96 (114) 94 I/O 06/28/17 06/28/17 06/28/17 06/29/17 06/29/17 06/29/17 07:00 15:00 23:00 07:00 15:00 23:00 Intake Total 358 ml 620 ml Balance 358 ml 620 ml Intake Oral 358 ml 620 ml # Voids 2 1 4 2 # Bowel Movements 0 0 0 Result Diagram: 06/27/17 1420 06/27/17 1420 Imaging Last 72 hours Impressions Chest X-Ray 06/27/17 1406 Signed Impressions: Service Date/Time: June 14:15 - CONCLUSION: No acute disease. Jesus Tipton MD Objective Remarks HEENT - AT/NC; Resp - CTA; CV - RRR without M,R or G; Abd - Soft and nontender; MS - FROM without deformity. Medications and IVs Inpatient Medications Acetaminophen (Tylenol) 650 mg Q4H PRN PO TEMP > 100.4 Last administered on at 13:04; Start 06/27/17 at 16:15 Aspirin (Aspirin) 325 mg ONCE ONCE PO ; Start 06/27/17 at 16:30; Stop 06/27/17 at 16:39; Status DC Bisacodyl (Dulcolax Supp) 10 mg DAILY PRN RECTAL SEVERE CONSITIPATION; Start at 16:15 Influenza Virus Vaccine (Flu (Quadrivalent) Vaccine Inj) 0.5 ml ONCE ONCE IM Last administered on 06/28/17at 08:28; Start 06/28/17 at 10:00; Stop 06/28/17 at 10:01; Status DC Lamotrigine (LaMICtal) 400 mg HS PO Last administered on 06/28/17at 20:24; Start 06/27/17 at 21:00 Magnesium Hydroxide (Milk Of Magnesia Liq) 30 ml Q12H PRN PO Mild constipation ; Start 06/27/17 at 16:15 Morphine Sulfate (Morphine Inj) 4 mg Q4H PRN IV PUSH PAIN SCALE 1 TO 10 Last administered on 06/28/17at 20:25; Start 06/27/17 at 18:00 Naloxone HCl (Narcan Inj) 0.4 mg UNSCH PRN IV PUSH SEE LABEL COMMENTS; Start at 16:15 Naproxen (Naprosyn) 500 mg ONCE ONCE PO Last administered on 06/27/17at 18:00; Start 06/27/17 at 18:00; Stop 06/27/17 at 18:01; Status DC Naproxen Sodium (Anaprox Ds) 500 mg ONCE ONCE PO ; Start 06/27/17 at 17:45; Stop 06/27/17 at 17:57; Status DC Olanzapine (ZyPREXA) 10 mg HS PO Last administered on 06/28/17 20:24; Start at 21:00 Ondansetron HCl (Zofran Inj) 4 mg Q6H PRN IVP NAUSEA OR VOMITING Last administered on 06/27/17at 21:30; Start 06/27/17 at 16:15 Pantoprazole Sodium (Protonix) 20 mg DAILY PO Last administered on 06/29/17at 09 :12; Start 06/28/17 at 09:00 Senna/Docusate Sodium (Karly-Colace) 1 tab BID PO Last administered on 20:24; Start 06/27/17 at 21:00 Sennosides (Senokot) 17.2 mg Q12H PRN PO Moderate constipation; Start 06/27/17 at 16:15 Sodium Chloride (NS Flush) 2 ml BID IV FLUSH Last administered on 06/29/17 09: 13; Start 06/27/17 at 21:00 Trazodone HCl (Desyrel) 100 mg HS PO Last administered on 06/28/17 20:24; Start 06/27/17 at 21:00 Assessment and Plan Problem List: (1) Chest pain ICD Codes: R07.9 - Chest pain Status: Acute Plan: Cards consult pending Keith King DO Jun 29, 2017 15:08
[2017-06-29] MEDS: OLANZapine 5 MG TAB PO SCH (21:05)
[2017-06-29] MEDS: traZODone HCL 100 MG TAB PO SCH (21:05)
[2017-06-29] MEDS: lamoTRIgine 100 MG TAB PO SCH (21:05)
[2017-06-29] MEDS: MORPHINE SULFATE 2 MG/ML INJ IV PUSH PRN (21:11)
[2017-06-30] VITALS (8 sets, daily range): BP systolic 116–138; BP diastolic 69–89; PULSE 85–111; RESP 16–20; TEMP 97.7–98; O2SAT 93–98
[2017-06-30] MEDS: DOCUSATE SODIUM 50 MG/SENNA 8.6 MG TAB PO SCH ×2 (09:00→21:00)
[2017-06-30] MEDS: PANTOPRAZOLE SOD 20 MG DELAYED RELEASE TAB PO SCH (09:24)
[2017-06-30] MEDS: SODIUM CHLORIDE 0.9% FLUSH 10 ML FLUSH IV FLUSH SCH ×2 (09:24→21:56)
[2017-06-30] MEDS ORDERED: REGADENOSON INJ 0.4 MG/5 ML SYR IV ONE (12:06)
--- NOTE | 2017-06-30 13:52 | HHI.PR ---
Subjective Remarks Waiting for cardiac W/U following adm for CP. Objective Vital Signs Date Time Temp Pulse Resp B/P (MAP) Pulse Ox O2 Delivery O2 Flow Rate FiO2 06/30/17 08:06 85 06/30/17 08:00 97.9 103 16 116/69 (85) 95 06/30/17 05:05 97.7 95 20 129/69 (89) 93 06/30/17 00:00 97.7 94 20 125/72 (89) 94 06/29/17 20:00 100 06/29/17 20:00 97.7 101 20 115/81 (92) 96 06/29/17 16:00 98.5 101 20 130/77 (94) 95 06/29/17 15:53 95 06/29/17 14:04 18 I/O 06/29/17 06/29/17 06/29/17 06/30/17 06/30/17 06/30/17 07:00 15:00 23:00 07:00 15:00 23:00 Intake Total 620 ml 300 ml Balance 620 ml 300 ml Intake Oral 620 ml 300 ml # Voids 2 1 3 # Bowel Movements 0 0 Result Diagram: 06/27/17 1420 06/27/17 1420 Imaging Last Impressions Chest X-Ray 06/27/17 1406 Signed Impressions: Service Date/Time: June 14:15 - CONCLUSION: No acute disease. Jesus Tipton MD Procedures Stress test and echo ordered and pending Objective Remarks HEENT - AT and NC; Resp - CTA; CV - RRR without rub or gallop; Abd - soft and nontender, Neuro - Alert and oriented Medications and IVs Current Medications Medications (Trade) Dose Ordered Sig/Deb Route Start Time Stop Time Status Last Admin (NS Flush) 2 ml UNSCH PRN IV FLUSH 06/27/17 16:15 06/28/17 02:53 (NS Flush) 2 ml BID IV FLUSH 06/27/17 21:00 06/30/17 09:24 (Tylenol) 650 mg Q4H PRN PO 06/27/17 16:15 06/29/17 21:08 (Zofran Inj) 4 mg Q6H PRN IVP 06/27/17 16:15 06/27/17 21:30 (Narcan Inj) 0.4 mg UNSCH PRN IV PUSH 06/27/17 16:15 (Karly-Colace) 1 tab BID PO 06/27/17 21:00 06/29/17 21:04 (Milk Of Magnesia Liq) 30 ml Q12H PRN PO 06/27/17 16:15 (Senokot) 17.2 mg Q12H PRN PO 06/27/17 16:15 (Dulcolax Supp) 10 mg DAILY PRN RECTAL 06/27/17 16:15 (LaMICtal) 400 mg HS PO 06/27/17 21:00 06/29/17 21:05 (ZyPREXA) 10 mg HS PO 06/27/17 21:00 06/29/17 21:05 (Protonix) 20 mg DAILY PO 06/28/17 09:00 06/30/17 09:24 (Desyrel) 100 mg HS PO 06/27/17 21:00 06/29/17 21:05 (Morphine Inj) 4 mg Q4H PRN IV PUSH 06/27/17 18:00 06/29/17 21:11 Assessment and Plan Problem List: (1) Chest pain ICD Codes: R07.9 - Chest pain Status: Acute Plan: Currently improved and cardiac work up is pending Discussed Condition With patient Discharge Planning Home when cleared by Cards Problem Qualifiers (1) Chest pain: Qualified Codes: R07.2 - Precordial pain Koko Magallon Jun 30, 2017 13:52
--- NOTE | 2017-06-30 19:53 | ECHRPT ---
Indication: CORONARY ATHEROSCLEROSIS CONCLUSIONS Normal left ventricular size. Wall thickness is normal. The left ventricular systolic function is hyperdynamic with an estimated ejection fraction in the ra nge of 65- 70%. Trace mitral valve regurgitation. BP: 116 / 69 HR: 103 Rhythm: Sinus MEASUREMENTS (Male / Female) Normal Values Technical Quality:Fair 2D ECHO LV Diastolic Diameter PLAX 3.6 cm 4.2 - 5.9 / 3.9 - 5.3 cm LV Systolic Diameter PLAX 2.5 cm IVS Diastolic Thickness 1.0 cm 0.6 - 1.0 / 0.6 - 0.9 cm LVPW Diastolic Thickness 1.0 cm 0.6 - 1.0 / 0.6 - 0.9 cm LV Relative Wall Thickness 0.6 RV Internal Dim ED PLAX 2.4 cm LVOT Diameter 1.8 cm Aortic Root Diameter 2.5 cm LA Systolic Diameter LX 3.1 cm 3.0 - 4.0 / 2.7 - 3.8 cm M-MODE AV Cusp Separation MM 1.7 cm DOPPLER AV Peak Velocity 99.3 cm/s AV Peak Gradient 3.9 mmHg AV Mean Gradient 2.0 mmHg AV Velocity Time Integral 15.7 cm LVOT Peak Velocity 88.7 cm/s LVOT Peak Gradient 3.1 mmHg LVOT Velocity Time Integral 17.4 cm AV Area Cont Eq vti 2.8 cm AV Area Cont Eq pk 2.3 cm Mitral E Point Velocity 52.3 cm/s Mitral A Point Velocity 59.7 cm/s Mitral E to A Ratio 0.9 LV E' Lateral Velocity 7.0 cm/s Mitral E to LV E' Lateral Ratio 7.5 LV E' Septal Velocity 5.1 cm/s Mitral E to LV E' Septal Ratio 10.3 PV Peak Velocity 73.7 cm/s PV Peak Gradient 2.2 mmHg FINDINGS LEFT VENTRICLE Normal left ventricular size. Wall thickness is normal. The left ventricular systolic function is hyperdynamic with an estimated ejection fraction in the ra nge of 65- 70%. RIGHT VENTRICLE Normal right ventricular size and systolic function. LEFT ATRIUM The left atrial size is normal. RIGHT ATRIUM The right atrial size is normal. ATRIAL SEPTUM The interatrial septum not well visualized. AORTA The aortic root and proximal ascending aorta are normal in size on limited imaging. MITRAL VALVE Trace mitral valve regurgitation. AORTIC VALVE No aortic valve stenosis or regurgitation. TRICUSPID VALVE Structurally normal tricuspid valve. No tricuspid valve stenosis or regurgitation. PULMONARY VALVE No pulmonary valve regurgitation or stenosis. VESSELS The inferior vena cava is normal in size. PERICARDIUM No pericardial effusion. Silvano Michael MD, FACC (Electronically Signed) Final Date:30 June 2017 19:52
--- NOTE | 2017-06-30 20:49 | MB ---
cc: LIT PRATER M.D. DATE OF CONSULTATION 06/30/2017 REASON FOR CONSULTATION For evaluation of chest pain. HISTORY OF THE PRESENT ILLNESS Shanice Morales is a 47-year-old woman admitted to the hospital 3 days ago with chest pain. Apparently there was a fiasco with her consults, cardiology consult was refused by Dr. Black, Dr. Horowitz and subsequently consult was given to Dr. Michael. I spoke to Dr. Michael and he would not agree to come in and see her tonight, so in an effort to expedite her care I have come in. This is a patient who has apparently seen Dr. Black in the past but he is not following her now because she is noncompliant. She has a documented history of previous stroke with MRI showing a right basal ganglia lacuna infarct. She was worked up in the past with a MELLY showing no patent foramen ovale. She says she cannot take aspirin. I think she may have been on Plavix before although the patient cannot recall and she is not taking Plavix now. She has had multiple evaluations for chest pain that I can see with nuclear stress test in 2012, 2013, 2014 and September 14, 2016. Apparently she has had a previous cardiac catheterization many years ago, we think maybe around 2003 but there is no results that I can find for that. She says she started getting sharp chest pain morning, into the left chest. It is a stabbing feeling. It is continuous. It gets worse with time. Nothing makes it better except morphine. She initially did not think it got worse with a deep breath, but on further questioning she thinks it might be a little bit worse with a deep breath. She has had no evidence for infarctions before. The pain at times will go down to a 1. I could not reproduce it with chest palpation. She does not have tightness, pressure, squeezing or other more typical symptoms. It is not associated with radiation, diaphoresis or shortness of breath. She does not smoke. Her father of congestive heart failure at age 78. There is a mention of elevated cholesterol in her chart. Cholesterol has not been measured this admission. November 14, 2015 her cholesterol was 163 with an HDL 39, LDL of 86, triglycerides of 190. And in April 15, 2015 with a cholesterol of 170, HDL 38, LDL 102, triglycerides of 150. She also states she has a little discomfort when I palpated her calves. On physical examination she thinks the pain may be a little bit worse with deep breaths but not sure. PAST MEDICAL HISTORY 1. She has documented stable old right basal ganglial with an infarct in the past. 2. She received TPA for droopy face for suspected TIA in 2013. There is not a carotid Doppler study that I can find. 3. She has type II bipolar disease. 4. She says she had ulcers at age 14 and vomited bright red blood due to aspirin and only a few months ago had a upper endoscopy showing 5 pre ulcer types . She says she cannot take aspirin because of this. PAST SURGICAL HISTORY Includes: 1. Tonsillectomy. 2. Tubal ligation. 3. Appendectomy. 4. Cholecystectomy. 5. Partial hysterectomy. 6. Left shoulder surgery. 7. Oral surgery. 8. Laparoscopic surgery for adhesions. SOCIAL HISTORY She is with two children. She takes care of her mom. She has never smoked. She does not drink. FAMILY HISTORY Father of CHF at age 78. Mother is alive and well. She has two brothers and two sisters. She has one sister that has Crohn disease. REVIEW OF SYSTEMS Negative for urinary symptoms. Negative for GI symptoms. No skin problems. She has occasional low back pain which she says is from herniated discs in the past. Remaining review of systems is negative. PHYSICAL EXAMINATION GENERAL: Physical exam shows a morbidly obese, pleasant white female with normal mood and affect. VITAL SIGNS: Her vital signs over the last 3 days show that she is normotensive. She has sinus rates varying in the 80s to low 100s. HEENT: Exam is unremarkable. NECK: Notable for the absence of bruits or JVD. CHEST: Her chest is clear to auscultation. CARDIOVASCULAR: Exam was unable to palpate a PMI. First and second heart sounds are normal. Regular rate and rhythm. No murmurs, gallops appreciated. CHEST: Chest wall is nontender to palpation. ABDOMEN: Abdominal exam is morbidly obese. I was not able to appreciate hepatomegaly, masses or tenderness. EXTREMITIES: Notable for a very slight tenderness when I squeezed her calves but I cannot see any overt inflammation. Pedal pulses are normal. She has had serial EKGs done when she came in on the 11th and there are three EKGs in her chart. These demonstrate normal sinus rhythm, a very slight degree of nonspecific T-wave abnormality that is similar in all three tracings, certainly nothing to indicate ischemia at this point. LABORATORY FINDINGS Her potassium 3.8, creatinine 0.86. Cardiac enzymes measured three times have been normal. Her CBC is normal. There has been no other laboratory evaluation this admission. IMPRESSION Chest pain which has been continuous now for 3 days. No overt evidence of ischemia. She has had negative enzymes. Her EKGs do not show ischemia. It is not typical of heart, I would say it is very atypical type pain. I do not have the results of her previous catheterization. The slight calf tenderness and slight pleuritic nature of the pain warrants further investigation and I am ordering venous Dopplers and a chest, a stat CTA to rule out pulmonary embolism. She has already had part one of a nuclear stress test and due to have part two tomorrow. I have ordered a lipid test. In case this is rheumatological I am ordering a sedimentation rate, rheumatoid factor, and RANOLD. With a prior history of stroke and question of TIA I am ordering a carotid Doppler study. At this point it is not clear if she is having cardiac pain. If her stress test is normal I do not think I would proceed with a cardiac catheterization. If her stress test is ____ abnormal, I will have her moved to the main hospital for consideration of a possible cath. If all of the above workup is negative, I will defer back to her primary care physician for further assessment. MD BALA Nova/TAHIRA /7:59 PM /8:18 PM
[2017-06-30 20:55] LABS: TROPONIN I LESS THAN 0.02 NG/ML (0.02-0.05)
[2017-06-30] MEDS ORDERED: IOHEXOL 350 MG/ML 10 ML VIAL (for RAD DIAG) IVCONTRAST ONE (21:07)
--- NOTE | 2017-06-30 21:12 | RADRPT ---
EXAM DATE/TIME: 06/30/2017 20:46 [facility] COMPARISON: No previous studies available for comparison. INDICATIONS : Chest pain. Evaluate for embolism. IV CONTRAST: 75 cc Omnipaque 350 (iohexol) IV RADIATION DOSE: 21.64 CTDIvol (mGy) MEDICAL HISTORY : Gastroesophageal reflux disease. Hypertension. Cerebrovascular disease. SURGICAL HISTORY : Cholecystectomy. Appendectomy.Hysterectomy.Cardiac Catherization. ENCOUNTER: Initial ACUITY: 4 - 6 days PAIN SCALE: 5/10 LOCATION: chest Mid TECHNIQUE: Volumetric scanning of the chest was performed using a pulmonary embolism protocol MIP images were re constructed. Using automated exposure control and adjustment of the mA and/or kV according to patien t size, radiation dose was kept as low as reasonably achievable to obtain optimal diagnostic quality images. DICOM format image data is available electronically for review and comparison. Follow-up recommendations for detected pulmonary nodules are based at a minimum on nodule size and pa tient risk factors according to Fleischner Society Guidelines. FINDINGS: PULMONARY ARTERIES: No filling defects are seen in the pulmonary arteries through the segmental level. LUNGS: There is no consolidation or pneumothorax . No concerning pulmonary nodule is visualized. PLEURAE: There is no pleural thickening or pleural effusion. MEDIASTINUM: There is good visualization of the great vessels of the middle mediastinum. No evidence of mediastin al or hilar adenopathy/mass. MUSCULOSKELETAL: Within normal limits for patient age. MISCELLANEOUS: The visualized upper abdominal organs demonstrate no acute abnormality. CONCLUSION: Negative. No pulmonary embolus or other acute cardiopulmonary disease demonstrated. Ruben Lala MD on June 30, 2017 at 21:09 Board Certified Radiologist. This report was verified electronically.
[2017-06-30] MEDS: lamoTRIgine 100 MG TAB PO SCH (21:55)
[2017-06-30] MEDS: traZODone HCL 100 MG TAB PO SCH (21:55)
[2017-06-30] MEDS: OLANZapine 5 MG TAB PO SCH (21:55)
[2017-06-30] MEDS: MORPHINE SULFATE 2 MG/ML INJ IV PUSH PRN (21:56)
[2017-06-30] MEDS: ONDANSETRON HCL 4 MG/2 ML VIAL IVP PRN (22:05)
[2017-06-30 22:37] LABS: C-REACTIVE PROTEIN 0.3 MG/DL (0.00-0.30)
[2017-06-30 22:40] LABS: CHOLESTEROL 185 MG/DL (120-200); TRIGLYCERIDES 152 MG/DL (42-150)
[2017-06-30 22:41] LABS: RHEUMATOID FACTOR SCREEN NEGATIVE (NEGATIVE)
[2017-06-30 22:42] LABS: CHOLESTEROL/ HDL RATIO 3.83 RATIO; HDL CHOLESTEROL 48.3 MG/DL (40.0-60.0); LDL CHOLESTEROL 106 MG/DL (0-99)
[2017-07-01] VITALS: BP 123/87; PULSE 93; RESP 20; TEMP 99; O2SAT 94
[2017-07-01 04:00] VITALS: BP 122/81; PULSE 100; RESP 20; TEMP 97.4; O2SAT 95
[2017-07-01 07:50] VITALS: BP 120/63; PULSE 97; RESP 20; TEMP 98; O2SAT 95
[2017-07-01 08:30] VITALS: PULSE 87
[2017-07-01] MEDS: PANTOPRAZOLE SOD 20 MG DELAYED RELEASE TAB PO SCH (08:31)
[2017-07-01] MEDS: SODIUM CHLORIDE 0.9% FLUSH 10 ML FLUSH IV FLUSH SCH (08:31)
[2017-07-01] MEDS: DOCUSATE SODIUM 50 MG/SENNA 8.6 MG TAB PO SCH (08:31)
--- NOTE | 2017-07-01 09:15 | HHI.PR ---
Subjective Remarks Wants to go home Objective Vital Signs Date Time Temp Pulse Resp B/P (MAP) Pulse Ox O2 Delivery O2 Flow Rate FiO2 07/01/17 04:00 97.4 100 20 122/81 (95) 95 07/01/17 00:00 99.0 93 20 123/87 (99) 94 06/30/17 20:15 111 06/30/17 20:00 97.8 107 20 138/89 (105) 96 06/30/17 16:00 98.0 99 16 122/70 (87) 98 06/30/17 12:00 98.0 102 18 138/79 (98) 98 I/O 06/30/17 06/30/17 06/30/17 07/01/17 07/01/17 07/01/17 07:00 15:00 23:00 07:00 15:00 23:00 Intake Total 300 ml 720 ml Balance 300 ml 720 ml Intake Oral 300 ml 720 ml # Voids 3 2 4 # Bowel Movements 0 1 Result Diagram: 06/27/17 1420 06/27/17 1420 Procedures CTA done negative for PE Echo shows EF 65-70%, mild Mitral valve regurgitation Other Results Laboratory Tests Test 06/30/17 09:15 06/30/17 20:10 06/30/17 20:19 Troponin I LESS THAN 0.02 NG/ML Triglycerides Level 152 MG/DL (42-150) LDL Cholesterol 106 MG/DL (0-99) Objective Remarks GENERAL: This is a well-nourished, well-developed patient, in no apparent distress. SKIN: No rashes, ecchymoses or lesions. Cool and dry. HEAD: Atraumatic. Normocephalic. No temporal or scalp tenderness. EYES: Pupils equal round and reactive. Extraocular motions intact. No scleral icterus. No injection or drainage. ENT: Nose without bleeding, purulent drainage or septal hematoma. Throat without erythema, tonsillar hypertrophy or exudate. Uvula midline. Airway patent. NECK: Trachea midline. No JVD. Supple. CARDIOVASCULAR: Regular rate and rhythm without murmurs, gallops, or rubs. No reproducible chest pain RESPIRATORY: Clear to auscultation. Breath sounds equal bilaterally. No wheezes , rales, or rhonchi. GASTROINTESTINAL: Abdomen soft, non-tender, nondistended. No guarding. MUSCULOSKELETAL: Extremities without clubbing, cyanosis, or edema. No joint tenderness, effusion, or edema noted. NEUROLOGICAL: Awake and alert. Cranial nerves II through XII intact. Motor and sensory grossly within normal limits. Five out of 5 muscle strength in all muscle groups. Normal speec Assessment and Plan Assessment and Plan CTA negative for PE, ARNOLD pending Second part of stress test today. October D/C home after completed and no findings, per cardiology. Sylvia Peters Jul 01, 2017 09:14
--- NOTE | 2017-07-01 09:23 | RADRPT ---
EXAM DATE/TIME: 07/01/2017 08:46 [facility] COMPARISON: No previous studies available for comparison. INDICATIONS : Transient ischemic attack. MEDICAL HISTORY : Hypercholesterolemia. Gastroesophageal reflux disease. TIA. Migraine. Numbness. Peptic ulcer diseas e. SURGICAL HISTORY : Tonsillectomy. Cholecystectomy. Appendectomy. Cardiac catheterization. Colon biopsy. Abdominal adhesi on lysis. Hysterectomy. Tubal ligation. Left shoulder surgery. ENCOUNTER: Subsequent ACUITY: 1 day PAIN SCORE: 0/10 LOCATION: Bilateral neck PEAK SYSTOLIC VELOCITIES (cm/sec): ICA/CCA RATIO: Right: 0.9 Left: 0.5 ICA: Right: 79 Left: 58 CCA: Right: 88 Left: 114 ECA: Right: 92 Left: 62 VERTEBRAL: Right: 42 antegrade Left: 57 antegrade Elevated flow velocities and ICA/CCA ratios have been found to correlate with increased degrees of vessel stenosis, calculated as percentage of diameter relative to a normal segment of distal ICA/CCA FINDINGS: RIGHT CAROTID: No significant stenosis is visualized. The waveforms are within normal limits. LEFT CAROTID: No significant stenosis is visualized. The waveforms are within normal limits. VERTEBRAL ARTERIES: Antegrade flow is seen in both vertebral arteries. MISCELLANEOUS: None. CONCLUSION: Normal examination. Bob Houston MD on July 01, 2017 at 9:19 Board Certified Radiologist. This report was verified electronically.
--- NOTE | 2017-07-01 10:13 | RADRPT ---
EXAM DATE/TIME: 06/30/2017 11:57 [facility] COMPARISON: CHEST SINGLE AP, June 27, 2017, 14:15. CT PULMONARY ANGIOGRAM, June 30, 2017, 20:46. INDICATIONS : Mid chest pain with shortness of breath and nausea for one day. Angina. DOSE: 30.0 mCi Tc99m Myoview at stress. 30.0 mCi Tc99m Myoview at rest. 0.4 mg Lexiscan STRESS SYMPTOMS: Short of breath. EJECTION FRACTION: 67% MEDICAL HISTORY : Stroke. Hypertension. Gastroesophageal reflux disease. SURGICAL HISTORY : Tubal ligation. Tonsillectomy. Appendectomy. ENCOUNTER: Subsequent ACUITY: 1 day PAIN SCALE: 5/10 LOCATION: Midsternal chest TECHNIQUE: The patient underwent pharmacologic stress with infusion of prescribed dose. Continuous ECG tracing was monitored during stress. Gated SPECT imaging was performed after stress and conventional SPECT i maging was performed at rest. The examination was performed on a SPECT/CT scanner, both attenuation and non-corrected datasets were reviewed. FINDINGS: DISTRIBUTION: The maximum perfused segment at stress is in the anterior lateral wall. PERFUSION STUDY: The pattern of perfusion at stress is within normal limits. GATED STUDY: There is intact wall motion and thickening without hypokinetic or dyskinetic segments. CONCLUSION: Normal examination. RISK CATEGORY: Low (<1% Annual Mortality Rate) Bob Houston MD on July 01, 2017 at 10:09 Board Certified Radiologist. This report was verified electronically.
--- NOTE | 2017-07-01 10:49 | RADRPT ---
EXAM DATE/TIME: 07/01/2017 10:23 [facility] COMPARISON: US CAROTID ARTERIES, July 01, 2017, 8:46. INDICATIONS : Calf pain. Thrombosis. MEDICAL HISTORY : TIA. Migraine. Numbness. Peptic ulcer disease. Hypercholesterol. GERD. SURGICAL HISTORY : Tonsillectomy.Appendectomy. Cholecystectomy.Cardiac catheterization. Colon biopsy. Abdominal adhesion lysis. Hysterectomy. Tubal ligation. Left shoulder surgery. ENCOUNTER: Initial ACUITY: 1 day PAIN SCORE: 0/10 LOCATION: Bilateral leg. TECHNIQUE: Venous ultrasound of the left and right leg was performed from the inguinal ligament to the proximal calf. Real-time, color Doppler and spectral tracing, compression and augmentation techniques were us ed. FINDINGS: RIGHT LEG: There is normal compressibility of the deep venous system from the inguinal region to the proximal ca lf. No echogenic clot is seen in the lumen of the common femoral, femoral, popliteal, and posterior tibial veins. There is a normal response of the venous system to proximal and distal augmentation an d respiration. LEFT LEG: There is normal compressibility of the deep venous system from the inguinal region to the proximal ca lf. No echogenic clot is seen in the lumen of the common femoral, femoral, popliteal, and posterior tibial veins. There is a normal response of the venous system to proximal and distal augmentation an d respiration. CONCLUSION: 1. No DVT identified within either lower extremity. Justyn Coffey MD on July 01, 2017 at 10:45 Board Certified Radiologist. This report was verified electronically.
[2017-07-01] MEDS: ACETAMINOPHEN 325 MG TAB PO PRN (11:02)
[2017-07-01 11:50] VITALS: BP 119/68; PULSE 85; RESP 20; TEMP 96.4; O2SAT 93
--- NOTE | 2017-07-01 15:46 | HHI.PR ---
Addendum to Inpatient Note Addendum Reason: Additional Documentation Additional Information Patient has now had extensive workup following last evening's consults Despite days and days of chest pain troponin has risen even slightly. Echo shows nomal LV function and stress test is normal. Her pain does not sound cardiac in nature W/U for thromboembolic disease is negative - no venous thrombi and nl CTA W/U for SLE or inflammatory disease is also negative. At this point I defer to Dr. King. OK with me to DC home. Dallas Bejarano MD Jul 01, 2017 15:46
[2017-07-01 15:50] VITALS: BP 123/67; PULSE 88; RESP 20; TEMP 97.1; O2SAT 95
--- NOTE | 2017-07-01 16:04 | HHI.DS ---
Discharge Summary Admission Date Jun 27, 2017 at 15:41 Admitting Diagnosis CHEST PAIN (1) Chest pain ICD Codes: R07.9 - Chest pain Status: Acute Procedures CTA done negative for PE Echo shows EF 65-70%, mild Mitral valve regurgitation CBC/BMP: 06/27/17 1420 06/27/17 1420 Significant Findings Laboratory Tests Test 06/30/17 09:15 06/30/17 20:10 06/30/17 20:19 Troponin I LESS THAN 0.02 NG/ML Triglycerides Level 152 MG/DL (42-150) LDL Cholesterol 106 MG/DL (0-99) PE at Discharge GENERAL: This is a well-nourished, well-developed patient, in no apparent distress. SKIN: No rashes, ecchymoses or lesions. Cool and dry. HEAD: Atraumatic. Normocephalic. No temporal or scalp tenderness. EYES: Pupils equal round and reactive. Extraocular motions intact. No scleral icterus. No injection or drainage. ENT: Nose without bleeding, purulent drainage or septal hematoma. Throat without erythema, tonsillar hypertrophy or exudate. Uvula midline. Airway patent. NECK: Trachea midline. No JVD. Supple. CARDIOVASCULAR: Regular rate and rhythm without murmurs, gallops, or rubs. No reproducible chest pain RESPIRATORY: Clear to auscultation. Breath sounds equal bilaterally. No wheezes , rales, or rhonchi. GASTROINTESTINAL: Abdomen soft, non-tender, nondistended. No guarding. MUSCULOSKELETAL: Extremities without clubbing, cyanosis, or edema. No joint tenderness, effusion, or edema noted. NEUROLOGICAL: Awake and alert. Cranial nerves II through XII intact. Motor and sensory grossly within normal limits. Five out of 5 muscle strength in all muscle groups. Normal [facility] [place] [facility] Course Admitted for Chest pain, has history of stents. Dr Skinneret her regular bullet slugs inspector but he refused to see patient due to her non compliance. CTA negative for PE, she was seen by Dr Bejarano stress test completed, and negative patient cleared by cardiology for D/C and she will need to Follow up with PCP and get established with new bullet slugs inspector. Pt Condition on Discharge: Stable Discharge Disposition: Disch w/ Home Health Serv Discharge Instructions DIET: Follow Instructions for: Heart Healthy Diet Activities you can perform: Regular-No Restrictions Additional Information Follow up with PCP in 1-2 days. Will need new referral to cardiology Sylvia Peters Jul 01, 2017 16:04
== END 2017-07-01 17:03 | disposition home or self-care (01) ==
LOC: PHED 12:28 → PHEDA 15:41 → PH3A 20:25
PROVIDERS: ADMIT Family Medicine; ATTEND Family Medicine
DX: R07.9 Chest pain, unspecified (principal); R00.0 Tachycardia, unspecified; I45.10 Unspecified right bundle-branch block; R06.02 Shortness of breath; R11.0 Nausea; R07.2 Precordial pain; I10 Essential (primary) hypertension; I34.0 Nonrheumatic mitral (valve) insufficiency; R94.31 Abnormal electrocardiogram [ECG] [EKG]; E78.00 Pure hypercholesterolemia, unspecified; K21.9 Gastro-esophageal reflux disease without esophagitis; M51.36 Other intervertebral disc degeneration, lumbar region; F31.9 Bipolar disorder, unspecified; F41.9 Anxiety disorder, unspecified; M19.90 Unspecified osteoarthritis, unspecified site; E66.01 Morbid (severe) obesity due to excess calories; Z86.73 Personal history of transient ischemic attack (TIA), and cerebral infarction without residual deficits; Z79.899 Other long term (current) drug therapy; Z91.19 Patient's noncompliance with other medical treatment and regimen; Z88.6 Allergy status to analgesic agent; Z23 Encounter for immunization
CPT/HCPCS: 71045; 71275; 78452; 80048; 80061; 82550; 84443; 84484; 84702; 85025; 85379; 85652; 86038; 86140; 86430; 90686; 93005; 93017; 93306; 93880; 93970; 96374; 96375; 96376; 99285; A9502; G0378; J2270; J2405; J2785; Q9967; Q2038

== ENCOUNTER 2018-02-12 15:21 | Inpatient (IN) ==
[2018-02-12 16:02] LABS: Baso # (Auto) 0.1 th/mm3 (0.0-0.2); Baso % (Auto) 0.7 % (0.0-2.0); Eos # (Auto) 0.1 th/mm3 (0.0-0.4); Eos % (Auto) 0.7 % (0.0-4.0); Hematocrit 42.5 % (35.0-46.0); Hemoglobin 14.1 gm/dL (11.6-15.3); Lymph % (Auto) 41.2 % (9.0-44.0); Mean Corpuscular HGB Conc 33.2 % (32.0-36.0); Mean Corpuscular Hemoglobin 28.3 pg (27.0-34.0); Mean Corpuscular Volume 85.4 fL (80.0-100.0); Mean Platelet Volume 9.2 fL (7.0-11.0); Mono # (Auto) 0.5 th/mm3 (0.0-0.9); Mono % (Auto) 5.7 % (0.0-8.0); Neut # (Auto) 4.9 th/mm3 (1.8-7.7); Neut % (Auto) 51.7 % (16.0-70.0); Platelet Count 243 th/mm3 (150-450); Red Blood Count 4.97 mil/mm3 (4.00-5.30); White Blood Count 9.6 th/mm3 (4.0-11.0)
[2018-02-12 16:09] LABS: Potassium 3.7 meq/L (3.5-5.1)
[2018-02-12 16:12] LABS: Calcium 8.6 mg/dL (8.5-10.1); Carbon Dioxide 24.8 meq/L (21.0-32.0)
--- NOTE | 2018-02-12 16:19 | ED ---
HPI General Chief complaint: Dizziness Stated complaint: Nosebleed x yest/ c/o dizziness/RIVAS today Source: patient Mode of arrival: ambulatory Limitations: no limitations History of Present Illness HPI narrative: Patient presents with history of significant epistaxis yesterday at noon that lasted for approximately one half hour and resolved spontaneously. After this episode patient had significant occipital headache 7 out of 10 with persistent nausea since that time. Patient is nauseated at the present time. Patient has no other neurologic symptoms and no neck pain. The headache is in the occipital region and constant in nature. Patient has a history of TIA in the past. However is in generally good health. Related Data Home Medications Medication Instructions Recorded Confirmed lamotrigine [Lamictal] 400 mg PO HS 02/12/18 02/12/18 olanzapine 10 mg PO HS 02/12/18 02/12/18 omeprazole 20 mg PO DAILY 02/12/18 02/12/18 temazepam 30 mg PO HS 02/12/18 02/12/18 trazodone 100 mg PO HS 02/12/18 02/12/18 Allergies Allergy/AdvReac Type Severity Reaction Status Date / Time pneumococcal vaccine Allergy Severe ANAPHYLAXIS Verified 02/12/18 15:28 aspirin AdvReac Intermediate GI UPSET Verified 02/12/18 15:28 Review of Systems ROS: all other systems reviewed are negative [facility] Medical History Medical History Bipolar 1 disorder (Acute) GERD (gastroesophageal reflux disease) (Acute) Hx of hysterectomy (Acute) TIA (transient ischemic attack) (Acute) Surgical History Surgical History History of shoulder surgery (Acute) Hx of appendectomy (Acute) Hx of cholecystectomy (Acute) Hx of tonsillectomy (Acute) Social History Social History Substance History: No History of Abuse Smoking Status: Never smoker How Often Do You Have a Drink Containing Alcohol: 2 to 4 times a month Recent Travel in [facility] within the Last 8 Weeks: No Recent Out of Country Travel within the Last 8 Weeks: No Immunization History Tetanus Immunization: Unsure Hx Influenza Vaccine This Season: Yes Exam Narrative Exam Narrative: GENERAL: Nausea but oriented and not in significant distress SKIN: Focused skin assessment warm/dry. HEAD: Atraumatic. Normocephalic. EYES: Pupils equal and round. No scleral icterus. No injection or drainage. ENT: No nasal bleeding or discharge. Mucous membranes pink and moist. Residual from epistaxis yesterday at [place] on left. NECK: Trachea midline. No JVD. CARDIOVASCULAR: Regular rate and rhythm. No murmur appreciated. RESPIRATORY: No accessory muscle use. Clear to auscultation. Breath sounds equal bilaterally. GASTROINTESTINAL: Abdomen soft, non-tender, nondistended. Hepatic and splenic margins not palpable. MUSCULOSKELETAL: No obvious deformities. No clubbing. No cyanosis. No edema. NEUROLOGICAL: Awake and alert. No obvious cranial nerve deficits. Motor grossly within normal limits. Normal speech. PSYCHIATRIC: Appropriate mood and affect; insight and judgment normal. Course Initial Documented Vital Signs Temperature 97.7 F 02/12/18 15:25 Pulse Rate 98 H 02/12/18 15:25 Respiratory Rate 16 02/12/18 15:25 Blood Pressure 176/83 H 02/12/18 15:25 Pulse Oximetry 97 02/12/18 15:25 Last Documented Vital Signs Temperature 97.7 F 02/12/18 15:25 Pulse Rate 83 02/12/18 15:27 Respiratory Rate 18 02/12/18 15:27 Blood Pressure 123/76 02/12/18 15:27 Pulse Oximetry 97 02/12/18 15:27 Medical Decision Making MDM Narrative Medical decision making narrative: Patient presents with history of epistaxis yesterday that lasted for approximately one half hour. After this episode patient had significant headache to occipital region that is constrictive and persistent at 7 out of 10. Patient also has persistence nausea since that time. Patient has no episodes of emesis and no other GI symptoms. Patient has no pain or discomfort in her neck however her CT shows a lacunar infarct probably secondary to to an old TIA. Given the patient is only 47 years of age patient needs to be admitted with an MRI and further evaluation to make sure there is no significant neurologic problem. Patient has not vertigo but generalized weakness intermittently. Medical Screen Exam Complete: Yes Emergency Medical Condition: Yes Lab Data Result diagrams: 02/12/18 15:50 02/12/18 15:50 Lab Results 02/12/18 02/12/18 Range/Units 15:50 15:50 CBC w Diff Auto diff final WBC 9.6 (4.0-11.0) th/mm3 RBC 4.97 (4.00-5.30) mil/mm3 Hgb 14.1 (11.6-15.3) gm/dL Hct 42.5 (35.0-46.0) % MCV 85.4 (80.0-100.0) fL MCH 28.3 (27.0-34.0) pg MCHC 33.2 (32.0-36.0) % RDW 13.0 (11.6-17.2) % Plt Count 243 (150-450) th/mm3 MPV 9.2 (7.0-11.0) fL Neut % (Auto) 51.7 (16.0-70.0) % Lymph % (Auto) 41.2 (9.0-44.0) % [place] % (Auto) 5.7 (0.0-8.0) % Eos % (Auto) 0.7 (0.0-4.0) % Baso % (Auto) 0.7 (0.0-2.0) % Neut # (Auto) 4.9 (1.8-7.7) th/mm3 Lymph # (Auto) 4.0 (1.0-4.8) th/mm3 [place] # (Auto) 0.5 (0.0-0.9) th/mm3 Eos # (Auto) 0.1 (0.0-0.4) th/mm3 Baso # (Auto) 0.1 (0.0-0.2) th/mm3 WBC Differential . Differential Comment . Sodium 138 (136-145) meq/L Potassium 3.7 (3.5-5.1) meq/L Chloride 105 (98-107) meq/L Carbon Dioxide 24.8 (21.0-32.0) meq/L Anion Gap 8 (5-15) meq/L BUN 13 (7-18) mg/dL Creatinine 0.87 (0.50-1.00) mg/dL Estimated GFR 70 L (>89) mL/min Random Glucose 89 (74-106) mg/dL Calcium 8.6 (8.5-10.1) mg/dL Imaging Data Radiologist's impression: Head CT 02/12/18 15:41 CONCLUSION: Stable brain appearance with no acute findings. . Discharge Plan Discharge Disposition Patient Disposition: 30 Still Patient Discharge Condition Condition: Fair Physicians Team ED Provider: Tanner Monahan Primary Care Provider: Keith King Rxs /Orders / Referrals /Forms Prescriptions: No Action lamotrigine [Lamictal] 200 mg Tablet 400 mg PO HS RF: 0 olanzapine 10 mg Tablet 10 mg PO HS RF: 0 trazodone 100 mg Tablet 100 mg PO HS RF: 0 temazepam 30 mg Capsule 30 mg PO HS RF: 0 omeprazole 20 mg Capsule,Delayed Release(Dr/Ec) 20 mg PO DAILY RF: 0 Status ED Status: With Nurse
--- NOTE | 2018-02-12 16:54 | CT ---
EXAM DATE: 02/12/2018 4:46 PM EDT AGE/SEX: 47 years / Female INDICATIONS: Cephalgia. CLINICAL DATA: This is the patient's initial encounter. Patient reports that signs and symptoms have been present for 1 day and indicates a pain score of 6/10. MEDICAL/SURGICAL HISTORY: Cerebrovascular disease. None. RADIATION DOSE: 59.83 CTDI (mGy) COMPARISON: [facility], CT BRAIN W/O CONTRAST, 05/14/2015. . TECHNIQUE: CT of the head without contrast. Using automated exposure control and adjustment of the mA and/or kV according to patient size, radiation dose was kept as low as reasonably achievable to ob tain optimal diagnostic quality images. DICOM format image data is available electronically for revi ew and comparison. FINDINGS: There are old lacunar infarcts in the right caudate head region and in the right lentiform nucleus. T he brain is otherwise symmetric and unremarkable with no evidence of mass or hemorrhage. There is not sb to suggest acute infarction. The extracranial structures are benign and intact. CONCLUSION: Stable brain appearance with no acute findings. . Electronically signed by: Ruben Holliday MD 02/12/2018 4:52 PM EDT
[2018-02-12] MEDS ORDERED: HYDROmorphone PF Inj 2 MG/ML Vial IV.PUSH ONE (17:21)
[2018-02-12] MEDS: traZODone 100 MG Tablet PO SCH (22:17)
[2018-02-12] MEDS: Temazepam 15 MG Capsule PO SCH (22:17)
[2018-02-12] MEDS: Acetaminophen/Codeine 300/30 MG Tablet PO PRN (22:17)
[2018-02-12] MEDS: OLANZapine 10 MG Tablet PO SCH (22:17)
[2018-02-12] MEDS: lamoTRIgine 100 MG Tablet PO SCH (22:17)
[2018-02-13] MEDS: lamoTRIgine 100 MG Tablet PO SCH ×2 (08:04→20:44)
[2018-02-13] MEDS: Pantoprazole Sodium 20 MG DR Tablet PO SCH (08:04)
[2018-02-13] MEDS: Acetaminophen/Codeine 300/30 MG Tablet PO PRN ×3 (08:09→18:20)
[2018-02-13] MEDS ORDERED: diazePAM 2 MG Tablet PO ONE (10:20)
--- NOTE | 2018-02-13 10:42 | P.HPFP ---
History of Present Illness Primary Care Physician: Keith King DO History of Present Illness: History of Present Illness Patient states she had episode of epistaxis yesterday at noon that lasted for approximately one half hour and resolved spontaneously. After this episode patient had significant occipital headache 7 out of 10 with persistent nausea since that time. She voices she has never had H/A like this before and did feel tingling in her extremities. She voices she was concerned because she had TIA in past, that prompted her to come to ER. P - Diagnosis (1) Head ache (2) Bipolar 1 disorder (3) GERD (gastroesophageal reflux disease) Inpatient Certification: I certify that the inpatient services were ordered in accordance with Medicare regulations governing the order. This includes certification that hospital inpatient services are reasonable and necessary and in the case of services not specified as inpatient-only under 42 CFR 419.22(n), that they are appropriately provided as inpatient services in accordance to with the 2-midnight benchmark under 43 CFR 412.3(e) Estimated Total Length of Stay (Days): 3 Plans for Post Hospital Care: [facility] - History History Provided By: Patient - Medical History Medical History: Medical History (Last Updated 02/12/18 @ 17:09 by Salima Huynh RN) Bipolar 1 disorder GERD (gastroesophageal reflux disease) Hx of hysterectomy TIA (transient ischemic attack) - Surgical History Surgical History: Surgical History (Last Reviewed 02/12/18 @ 16:16 by Tanner Monahan MD) History of shoulder surgery Hx of appendectomy Hx of cholecystectomy Hx of tonsillectomy - Tobacco History Second Hand Smoke Exposure: No Tobacco Use In Past 30 Days: No Smoking Status: Never smoker - Alcohol History How Often Do You Have a Drink Containing Alcohol: 2 to 4 times a month - Substance Use History Substance History: No History of Abuse - Travel History Recent Travel in the [place] Within the Last 8 Weeks: No Recent Travel Out of the Country Within the Last 8 Weeks: No - Immunization History Tetanus Immunization: Unsure Hx Influenza Vaccine This Season: Yes Medications and Allergies Active Medications: Active Medications Acetaminophen/Codeine Phosphate (Tylenol W/Cod #3) 2 tab PO Q4H PRN PRN Reason: HEADACHE Last Admin: 02/13/18 08:09 Dose: 2 tab Lamotrigine (Lamictal) 200 mg PO BID [facility]UIZ Last Admin: 02/13/18 08:04 Dose: 200 mg Olanzapine (Zyprexa) 10 mg PO [facility] Last Admin: 02/12/18 22:17 Dose: 10 mg Pantoprazole Sodium (Protonix) 20 mg PO DAILY [facility] Last Admin: 02/13/18 08:04 Dose: 20 mg Sodium Chloride (Ns Flush) 2 ml IV.FLUSH PRN PRN PRN Reason: FLUSH AFTER USING IV ACCESS Last Admin: 02/12/18 15:55 Dose: 2 ml Temazepam (Restoril) 15 mg PO [facility] Last Admin: 02/12/18 22:17 Dose: 15 mg Trazodone HCl (Desyrel) 100 mg PO [facility] Last Admin: 02/12/18 22:17 Dose: 100 mg Allergies Allergy/AdvReac Type Severity Reaction Status Date / Time pneumococcal vaccine Allergy Severe ANAPHYLAXIS Verified 02/12/18 15:28 aspirin AdvReac Intermediate GI UPSET Verified 02/12/18 15:28 Home Medications Medication Instructions Recorded Confirmed Type lamotrigine 200 mg PO BID 02/12/18 02/12/18 History olanzapine 10 mg PO 02/12/18 02/12/18 History omeprazole 20 mg PO DAILY 02/12/18 02/12/18 History temazepam 30 mg PO 02/12/18 02/12/18 History trazodone 100 mg PO 02/12/18 02/12/18 History Exam Vital signs: Vital Signs 02/12/18 15:25 02/12/18 15:27 02/12/18 17:49 Temperature 97.7 F Pulse Rate 98 H 83 85 Respiratory Rate 16 18 18 Blood Pressure 176/83 H 123/76 162/85 H Pulse Oximetry 97 97 97 02/12/18 18:30 02/12/18 20:00 02/13/18 00:00 Temperature 98.6 F 98.4 F 98.4 F Pulse Rate 80 84 79 Respiratory Rate 20 16 16 Blood Pressure 144/76 H 137/81 127/78 Pulse Oximetry 96 96 95 02/13/18 08:00 02/13/18 09:20 02/13/18 09:21 Temperature 97.6 F Pulse Rate 84 Respiratory Rate 21 16 16 Blood Pressure 130/78 Pulse Oximetry 95 Intake & Output 02/12/18 02/13/18 02/13/18 18:59 06:59 18:59 Intake Total 480 / 480 Balance 480 / 480 Weight 118 kg Intake: Oral 480 / 480 Other: # Voids 2 Date of Last Bowel Movement 02/12/18 02/12/18 02/12/18 Weight On Admission 118.5 kg - Constitutional no acute distress - Routine HEENT Exam Eye: Present: PERRL ENT: Present: mucous membranes moist - Routine Neck Exam Present: supple - Routine Respiratory Exam Present: CTA bilaterally - Routine Cardiovascular Exam Present: RRR, S1, S2 - Routine Abdominal Exam Present: soft, normoactive bowel sounds - Routine Extremities Exam Present: pulses intact - Routine Skin Exam Present: dry, warm - Routine Neurological Exam Present: alert, oriented X3, CN II-XII intact Results - Labs Result diagrams: 02/12/18 15:50 02/12/18 15:50 Abnormal lab results 02/12/18 Range/Units 15:50 Estimated GFR 70 L (>89) mL/min Short CBC 02/12/18 Range/Units 15:50 WBC 9.6 (4.0-11.0) th/mm3 Hgb 14.1 (11.6-15.3) gm/dL Hct 42.5 (35.0-46.0) % Plt Count 243 (150-450) th/mm3 BMP 02/12/18 15:50 Sodium 138 Potassium 3.7 Chloride 105 Carbon Dioxide 24.8 BUN 13 Creatinine 0.87 Calcium 8.6 - Imaging Impressions Head CT 02/12/18 15:41 CONCLUSION: Stable brain appearance with no acute findings. . Caprini VTE Risk Assessment Caprini VTE Risk Assessment: No/Low Risk (score <= 1) Caprini Risk Assessment Model: Point Value = 1 Point Value = 2 Point Value = 3 Point Value = 5 Age 41-60 Minor surgery BMI > 25 kg/m2 Swollen legs Varicose veins or History of unexplained or recurrent spontaneous Oral contraceptives or hormone replacement Sepsis (< 1 month) Serious lung disease, including pneumonia (< 1 month) Abnormal pulmonary function Acute myocardial infarction Congestive heart failure (< 1 month) History of inflammatory bowel disease Medical patient at bed rest Age 61-74 Arthroscopic surgery Major open surgery (> 45 min) Laparoscopic surgery (> 45 min) Malignancy Confined to bed (> 72 hours) Immobilizing plaster cast Central venous access Age >= 75 History of VTE Family history of VTE Factor V Leiden Prothrombin [id number] Lupus anticoagulant Anticardiolipin antibodies Elevated serum homocysteine Heparin-induced thrombocytopenia Other congenital or acquired thrombophilia Stroke (< 1 month) Elective arthroplasty Hip, pelvis, or leg fracture Acute spinal cord injury (< 1 month) Prophylaxis Regimen: Total Risk Factor Score Risk Level Prophylaxis Regimen 0-1 Low Early ambulation 2 Moderate Order ONE of the following: *Sequential Compression Device (SCD) *Heparin 5000 units SQ BID 3-4 Higher Order ONE of the following medications: *Heparin 5000 units SQ TID *Enoxaparin/Lovenox 40 mg SQ daily (WT < 150 kg, CrCl > 30 mL/min) *Enoxaparin/Lovenox 30 mg SQ daily (WT < 150 kg, CrCl > 10-29 mL/min) *Enoxaparin/Lovenox 30 mg SQ BID (WT < 150 kg, CrCl > 30 mL/min) AND/OR *Sequential Compression Device (SCD) 5 or more Highest Order ONE of the following medications: *Heparin 5000 units SQ TID (Preferred with Epidurals) *Enoxaparin/Lovenox 40 mg SQ daily (WT < 150 kg, CrCl > 30 mL/min) *Enoxaparin/Lovenox 30 mg SQ daily (WT < 150 kg, CrCl > 10-29 mL/min) *Enoxaparin/Lovenox 30 mg SQ BID (WT < 150 kg, CrCl > 30 mL/min) AND *Sequential Compression Device (SCD) Assessment and Plan - Assessment (1) Head ache Code(s): R51 - Headache Status: Acute Plan: CT negative, Hx Tia, will consult Neuro (2) Bipolar 1 disorder Code(s): F31.9 - Bipolar disorder, unspecified Status: Acute (3) GERD (gastroesophageal reflux disease) Code(s): K21.9 - Gastro-esophageal reflux disease without esophagitis Status: Acute Plan: Cont medications - Assessment and Plan Mood stable cont home medications. H&P: Quality - VTE Deep Vein Thrombosis/Pulmonary Embolism Present on Admission: No
--- NOTE | 2018-02-13 12:49 | MR ---
EXAM DATE: 02/13/2018 12:18 PM EDT AGE/SEX: 47 years / Female INDICATIONS: . Nosebleed and head pressure. CLINICAL DATA: This is the patient's subsequent encounter. Patient reports that signs and symptoms h ave been present for 2 days and indicates a pain score of 0/10. MEDICAL/SURGICAL HISTORY: Transient ischemic attack. Appendectomy. Cholecystectomy. Tonsillec renee. Partial hysterectomy. Left shoulder surgery. COMPARISON: No prior exams available for comparison. TECHNIQUE: Multiplanar, multisequence examination of the brain was performed without contrast. FINDINGS: Cerebrum: The ventricles are normal for age. No evidence of midline shift, mass lesion, hemorrhage or acute infarction. No extraaxial fluid collections are seen. The pituitary gland and suprasellar cistern are normal in configuration. White Matter: No significant signal abnormalities are seen in the white matter. Posterior Fossa: The cerebellum and brainstem are intact. The 4th ventricle is midline. The cerebel lopontine angle is unremarkable. The cerebellar tonsils are normal in position. Diffusion Imaging: No focal areas of restricted diffusion are seen. No evidence of acute infarction . Extracranial: The visualized portions of the orbits and paranasal sinuses are unremarkable. CONCLUSION: 1. Negative MR Brain non contrast. Electronically signed by: Tomas Garcia MD 02/13/2018 12:47 PM EDT
--- NOTE | 2018-02-13 12:50 | MR ---
EXAM DATE: 02/13/2018 12:12 PM EDT AGE/SEX: 47 years / Female INDICATIONS: . Nosebleed and head pressure. CLINICAL DATA: This is the patient's subsequent encounter. Patient reports that signs and symptoms h ave been present for 2 days and indicates a pain score of 0/10. MEDICAL/SURGICAL HISTORY: Transient ischemic attack. Cholecystectomy. Appendectomy. Tonsillec renee. Partial hysterectomy. Left shoulder surgery. COMPARISON: No prior exams available for comparison. TECHNIQUE: 3D [id number] MRA was performed. Source images, multiplanar STS MIP, and 3D volum e MIP reconstructions were reviewed. FINDINGS: There is excellent visualization of the major intracranial arteries out to the second-order branch ve ssels. There is no evidence for aneurysm, vessel truncation or stenosis, and no evidence for vascula r malformation. CONCLUSION: 1. Negative MRA [facility] ([place] [facility]) non contrast. Electronically signed by: Tomas Garcia MD 02/13/2018 12:49 PM EDT
--- NOTE | 2018-02-13 15:03 | MB ---
cc: Ward Gibbons MD DATE: 02/13/2018 HISTORY OF PRESENT ILLNESS: A 47-year-old right-handed woman with, she says, TIA back in 2013. She has some headaches about once a week. In 2013, she said she had a headache, some right-sided numbness, droopy face, was given TPA back then, but MRIs in 2014 did not show anything new. She has an old right almost to the external capsule area of encephalomalacia. Whether that could be an old stroke or not is debatable. Nevertheless, yesterday, she was just watching TV and suddenly had a bloody nose when she touched her nose. Evidently, she had a pretty severe bloody nose. She felt a little bit dizzy and heavy all over, not weak or numb on one side, and then she developed a headache on the back of her head. Evidently, blood pressure was up somewhat when they evaluated her in the ER, she tells me. She had some ringing in her ears ever since that time. She does not usually have ringing in the ears. PAST MEDICAL HISTORY: Bipolar, PTSD, history of headaches, history of "TIA." ALLERGIES: SHE IS ALLERGIC TO ASPIRIN. SHE HAD AN ULCER WHEN SHE WAS 14. SHE IS ALLERGIC TO THE PNEUMONIA VACCINE. MEDICATIONS AT HOME: She has not been taking Plavix, though she was on it at one time. She has been on Klonopin . SOCIAL HISTORY: She is a nonsmoker, occasionally drinks. No drugs. Lives with her . FAMILY HISTORY: Negative for cancer, seizure or stroke. REVIEW OF SYSTEMS: Denies any hypertension, diabetes, hypercholesterolemia, SD, CABG, cardiac arrhythmia, stent, angioplasty, A-Fib, Coumadin, renal, hepatic or pulmonary disease, thyroid disease, lupus, ulcer, cancer, or seizure. MEDICATIONS AT HOME: She was on 1. Lamictal 400 mg at bedtime. 2. Olanzapine. 3. Omeprazole. 4. Temazepam. 5. Trazodone. PHYSICAL EXAMINATION: VITAL SIGNS: Blood pressure here initially 176/83, down to 130/78. NECK: There were no carotid bruits. HEART: Regular rate and rhythm. I did not detect a murmur. NEUROLOGIC: Pupils are equal. Visual ramirez are full. Extraocular movements intact without nystagmus. Face is symmetric with normal sensation. Tongue was midline. There is no drift. Normal strength in upper and lower extremities bilaterally. DTRs trace throughout. Toes downgoing bilaterally. Pinprick is intact throughout. No ataxic [id number]. Speech is fluent, not aphasic. LABORATORY DATA: CBC is normal. Basic metabolic profile normal. She had a hypercoagulable screen done in 2013 that was negative. She had a normal iron level in the past. LFTs have been normal. Troponin negative in June of this year. LDL cholesterol 106 in June. B12, thyroid has been normal in the past years. HCG negative in June. Urine drug screen negative in 2014. Rheumatoid factor, antiphospholipid antibodies have been negative in the past as was the antinuclear antibody. RPR has been negative. Hepatitis screen has been negative. Prothrombin gene negative. In 2014, she had a brain MRI, which showed an old right-sided abnormality. No acute infarct. MRA of her neck at that time also normal. MRA of the head unremarkable. She had a MELLY in the past, which evidently was negative. Echocardiogram in June was normal. Carotid ultrasound in June of this year was normal. She had a stress test done in June of this year that was normal. I reviewed her films from 2013 and that area in the right basal ganglia, I believe, is just a normal anomaly for her. It matches up with something similar on the left side. I think it is just normal , which is seen in the basal ganglia at times. Overall, I think she looks well, neurologically. I do not think this represents a transient ischemic attack. She does have headaches that has resolved. For now, I think I would just check an MRI of the brain. If that is negative, she can be discharged. I do not think by the looks of her MRI that she has ever had a stroke before and her 2014 MRI and all subsequent MRIs have never showed an acute infarct, so if her MRI is negative, she can be discharged neurologically. Why she is having some bleeding from her nose and also her rectum recently is unclear. I would defer to the med team on that and evidently she has a colonoscopy scheduled. MD PARVIN Urena/claudia/saad , 11:00 AM , 11:11 AM
[2018-02-13] MEDS: traZODone 100 MG Tablet PO SCH (20:42)
[2018-02-13] MEDS: OLANZapine 10 MG Tablet PO SCH (20:43)
[2018-02-13] MEDS: Temazepam 15 MG Capsule PO SCH (20:43)
[2018-02-14] MEDS: lamoTRIgine 100 MG Tablet PO SCH (08:46)
[2018-02-14] MEDS: Pantoprazole Sodium 20 MG DR Tablet PO SCH (08:47)
--- NOTE | 2018-02-14 09:13 | P.DS ---
Date of admission: 02/12/18 17:21 Primary care physician: Keith King DO Anticipated date of discharge: 02/14/18 Brief History from admission: History of Present Illness Patient states she had episode of epistaxis yesterday at noon that lasted for approximately one half hour and resolved spontaneously. After this episode patient had significant occipital headache 7 out of 10 with persistent nausea since that time. She voices she has never had H/A like this before and did feel tingling in her extremities. She voices she was concerned because she had TIA in past, that prompted her to come to ER. P DS: Diagnosis - Discharge Diagnosis (1) Head ache Status: Acute (2) Bipolar 1 disorder Status: Acute (3) GERD (gastroesophageal reflux disease) Status: Acute DS: Summary Hospital Course: Patiharjit presented with Headache, following nose bleed at home. She has history of TIA. Neurology consulted CT, MRI, MRA all negative. She voices that she has had some rectal bleeding and is being followed by Dr Benito. She is scheduled for colonoscopy. Her hgb has been stable, she denies any further bleeding except for that one time. She will be DC home and will follow up outpatient. - Time Spent with Patient Total time spent providing and/or coordinating discharge services: 30 Less than 30 minutes - Quality: AMI Clinical Trial Participant: No - Quality: Stroke Symptom Onset Unknown: No - Quality: VTE Deep Vein Thrombosis/Pulmonary Embolism Present on Admission: No Exam Vital signs: Vital Signs 02/13/18 09:20 02/13/18 09:21 02/13/18 12:00 Temperature 98.7 F Pulse Rate 88 Respiratory Rate 16 16 19 Blood Pressure 130/67 Pulse Oximetry 97 02/13/18 20:00 02/13/18 20:44 02/14/18 00:00 Temperature 98.3 F 98.9 F Pulse Rate 88 82 Respiratory Rate 18 18 16 Blood Pressure 120/61 117/64 Pulse Oximetry 95 95 Intake & Output 02/13/18 02/14/18 02/14/18 18:59 06:59 18:59 Intake Total 360 / 360 Output Total 600 / 600 Balance -240 / -240 Weight 119.4 kg Intake: Oral 360 / 360 Output: Urine 600 / 600 Other: # Voids 3 Date of Last Bowel Movement 02/12/18 - Constitutional no acute distress - Routine HEENT Exam Head: Present: normocephalic Eye: Present: PERRL ENT: Present: mucous membranes moist - Routine Neck Exam Present: supple - Routine Respiratory Exam Present: CTA bilaterally - Routine Cardiovascular Exam Present: S1, S2 - Routine Abdominal Exam Present: soft, normoactive bowel sounds - Routine Skin Exam Present: dry, warm - Routine Neurological Exam Present: alert, oriented X3 Results Procedures completed during hospitalization: n/a - Impressions ITS Impressions Head CT 02/12/18 15:41 CONCLUSION: Stable brain appearance with no acute findings. . Head MRI 02/13/18 00:00 CONCLUSION: 1. Negative MR Brain non contrast. Head MRA 02/13/18 00:00 CONCLUSION: 1. Negative MRA [facility] ([place] [facility]) non contrast. Discharge Plan - Discharge Disposition Patient Disposition: 01 Discharge Home - Discharge Condition Condition: Fair - Discharge Order Discharge Orders: Discharge Order (Routine); Ordered 02/14/18 Ordered By: Sylvia Peters - Physicians Team Primary Care Provider: Keith King Attending Provider: Keith King Other Providers: Ward Patel MD ; [employer],Insurance
== END 2018-02-14 10:00 | disposition home or self-care (01) ==
LOC: PHED 15:21 → PHEDA 17:21 → PH3 18:00
PROVIDERS: ADMIT Family Medicine; ATTEND Family Medicine